=== PATIENT | female | born 1970 | race Caucasian/White ===

== ENCOUNTER 2023-07-30 22:19 | Emergency (ER) | payer OTHER, SELFPAY ==
[2023-07-30 22:29] VITALS: BP 125/75; PULSE 70; RESP 18; TEMP 36.7; O2SAT 95; BMI 36.3
--- NOTE | 2023-07-30 22:32 | XR_ITS ---
[facility] [id number] Patient Name: PRADEEP FITCH MRN: [id number] date: 1970 Sex: F Assigned Patient Location: ER Current Patient Location: ER Accession/Order Number: [id number] Exam Date: 07/30/2023 22:45 Report Date: 07/30/2023 23:21 At the request of: TEDDY MORA Procedure: XR foot RT min 3V EXAM: XR foot RT min 3V HISTORY: pain, dorsum COMPARISON: None. TECHNIQUE: 3 views of the right foot were obtained. FINDINGS: No acute fracture or dislocation is seen. There are scattered degenerative changes. There are moderate-sized plantar and small Achilles calcaneal enthesophytes. There is no significant right ankle joint effusion. XR/XR foot RT min 3V IMPRESSION: 1. Scattered degenerative changes with no acute osseous abnormality of the right foot seen. Electronically authenticated by: Tahir OROPEZA Date: 07/30/2023 23:21
--- NOTE | 2023-07-30 22:35 | ED.EXTPRO1 ---
HPI - Extremity Problem General Chief complaint: Extremity Injury, Lower Stated complaint: Lower Extremity Pain Time Seen by Provider: 07/30/23 22:30 History of Present Illness HPI Narrative: 52-year-old female presents for pain on the dorsum of her right foot. Three months ago she had fallen and had x-rays that were reportedly negative at another facility. The pain started up this time about a month ago and she's on her feet a lot at work. No subsequent trauma. She points to the mid dorsum of her right foot indicate area of pain. No pain in the ankle. Related Data Allergies Allergy/AdvReac Type Severity Reaction Status Date / Time NSAIDS (Non-Steroidal AdvReac Unknown Verified 07/30/23 22:38 Anti-Inflamma Review of Systems ROS Narrative A ten point review of systems is negative except as noted above. PFSH PFS Social History Smoking status: Former smoker Exam Narrative Exam Narrative: Nurses note and vital signs reviewed and patient is not hypoxic. General: The patient appears well and in no apparent distress. Patient is resting comfortably on cart. Skin: Warm, dry, no pallor noted. There is no rash noted. Head: Normocephalic, atraumatic Eye: Normal conjunctiva, no drainage Ears, Nose, Mouth, and Throat: oral mucosa is moist. Nares patent. Cardiovascular: Regular Rate and Rhythm Respiratory: Patient is in no distress, no accessory muscle use Back: non-tender GI: Normal bowel sounds, no tenderness to palpation, no masses appreciated. No rebound, guarding, or rigidity noted. Musculoskeletal: she has tenderness on the dorsum of the right foot. Skin intact. No bruise or rash present. Neurological: A&O, normal speech Psychiatric: Cooperative Constitutional Vital Signs, click to edit/add: Last Vital Signs Temp 98.1 F 07/30/23 22:29 Pulse 70 07/30/23 22:29 Resp 18 07/30/23 22:29 BP 125/75 07/30/23 22:29 Pulse Ox 95 07/30/23 22:29 O2 Del Method Room Air 07/30/23 22:29 Course Vital Signs Vital signs: Vital Signs Temperature 98.1 F 07/30/23 22:29 Pulse Rate 70 07/30/23 22:29 Respiratory Rate 18 07/30/23 22:29 Blood Pressure 125/75 07/30/23 22:29 Pulse Oximetry 95 07/30/23 22:29 Oxygen Delivery Method Room Air 07/30/23 22:29 Temperature 98.1 F 07/30/23 22:29 Pulse Rate 70 07/30/23 22:29 Respiratory Rate 18 07/30/23 22:29 Blood Pressure 125/75 07/30/23 22:29 Pulse Oximetry 95 07/30/23 22:29 Oxygen Delivery Method Room Air 07/30/23 22:29 MDM - Extremity (Nontraumatic) MDM Narrative Medical decision making narrative: x-rays per radiologist showed degenerative changes but no acute findings. She is referred to podiatry. Treatment diagnosis and follow-up were discussed with the patient. Differential Diagnosis Differential diagnosis: Likely other (foot sprain, fracture, arthritis) Imaging Data foot x-ray: Radiologist's impression: Procedure: XR foot RT min 3V EXAM: XR foot RT min 3V HISTORY: pain, dorsum COMPARISON: None. TECHNIQUE: 3 views of the right foot were obtained. FINDINGS: No acute fracture or dislocation is seen. There are scattered degenerative changes. There are moderate-sized plantar and small Achilles calcaneal enthesophytes. There is no significant right ankle joint effusion. IMPRESSION: 1. Scattered degenerative changes with no acute osseous abnormality of the right foot seen. Electronically authenticated by: Tahir OROPEZA Date: 07/30/2023 23:21 Discharge Plan Discharge Chief Complaint: Extremity Injury, Lower Clinical Impression: Foot pain Patient Disposition: Home, Self-Care Time of Disposition Decision: 23:29 Condition: Good Mode of Transportation: Private Vehicle Instructions: Arthralgia (ED) Additional Instructions: Follow-up with Dr. Mason Stand Alone Forms: Portal Instructions Referrals: ELAINE WEBB [Primary Care Provider] - 1 week
[2023-07-31] MEDS: TRAMADOL HCL 50 MG TABLET PO (00:07)
== END 2023-07-31 00:21 | disposition home or self-care (01) ==
PROVIDERS: Emergency Provider Emergency Medicine; PCP Family Medicine
DX: M79.671 Pain in right foot (principal); Z87.891 Personal history of nicotine dependence
CPT/HCPCS: 73630; 99283

== ENCOUNTER 2024-02-17 19:10 | Emergency (ER) | payer OTHER, SELFPAY ==
[2024-02-17] VITALS (7 sets, daily range): BP systolic 104–138; BP diastolic 64–81; PULSE 64–67; TEMP 37.1; O2SAT 95–99; BMI 36.3
--- OUTSIDE RECORDS SUMMARY | 2024-02-17 19:18 | XMS_ITS | CCD ---
Author Organization [facility] Care Team Providers Care Bone Worker Name Role Phone UDKE RIVAS Consulting Unavailable JON, DR HENRY Primary Care Unavailable ROB, AHVIN Admitting Unavailable ROB, AHDULCED Attending Unavailable MARKER, DR CRUZ Attending Unavailable MARKER, DR CRUZ Consulting Unavailable MARKER, DR CRUZ Admitting Unavailable JON, DR HENRY Primary Care Unavailable ELIECER CELESTIN Consulting Unavailable CHARLIERITIKA Admitting Unavailable CHARLIERITIKA TAMAYO Attending Unavailable JON, DR HENRY Primary Care Unavailable MOSES, DR BEAVERS Admitting Unavailable JON, DR HENRY Primary Care Unavailable MOSES, DR BEAVERS Attending Unavailable ROB, AHMAD Admitting Unavailable JON, DR HENRY Primary Care Unavailable ROB, AHDULCED Attending Unavailable ROB, AHMAD Consulting Unavailable ANISA CHOPRA Attending Unavailab ANISA Bae Referring Unavailab ANISA Bae Attending Unavailab BRYAN Courtney Attending Unavailable ANISA CHOPRA Referring Unavailab BRYAN Courtney Referring Unavailable ANISA CHOPRA Attending Unavailab ANISA Bae Attending Unavailab le ANISA CHOPRA Attending Unavailab BRYAN Courtney Attending Unavailable ANISA CHOPRA Referring Unavailab BRYAN Courtney Attending Unavailable BRYAN MARSH Attending Unavailable Allergies Allergy Classification Reported Allergen(s) Allergy Type Date of Onset Reaction(s) Facility (1 source) bee venom Drug allergy (disorder) [facility] (1 source) Desonide Drug Allergy [facility] (1 source) Latex Drug allergy (disorder) [facility] (1 source) Leucine Drug Allergy [facility] (1 source) Povidone-Iodine Drug Allergy [facility] (1 source) Misc-Other; Translations: [Misc-Other] Propensity to adverse reactions (disorder) [facility] (1 source) pine oil (Pinus sylvestris) Drug allergy (disorder) [facility] Problems Active Problems Problem Classification Problem Date Documented Da te Episodic/Chronic Other endocrine disorders (4 sources) Other specified disorders of adrenal gland; Translations: [OTHER SPEC DISORDERS ADRENAL GLAND] Onset: 12-27-2021 Chronic Other nutritional; endocrine; and metabolic disorders (1 source) Obesity, unspecified; Translations: [OBESITY UNSPECIFIED] Onset: 11-04-2021 Chronic Other nutritional; endocrine; and metabolic disorders (1 source) Body mass index (BMI) 38.0-38.9, adult; Translations: [BODY MASS INDEX BMI 38.0-38.9 ADULT] Onset: 11-04-2021 Chronic Residual codes; unclassified (4 sources) Obstructive sleep apnea (adult) (pediatric); Translations: [OBSTRUCTIVE SLEEP APNEA] Onset: 12-07-2021 Chronic Residual codes; unclassified (1 source) Idiopathic hypersomnia with long sleep time; Translations: [IDIO HYPERSOMNIA W/LONG SLEEP TIME] Onset: 12-10-2021 Chronic Past or Other Problems Problem Classification Problem Date Documented Da te Episodic/Chronic Abdominal pain (4 sources) Unspecified abdominal pain; Translations: [UNSPECIFIED ABDOMINAL PAIN] Onset: 11-03-2021 Episodic Intestinal obstruction without hernia (1 source) Ileus, unspecified; Translations: [ILEUS UNSPECIFIED] Onset: 11-04-2021 Episodic Nausea and vomiting (1 source) Nausea with vomiting, unspecified; Translations: [NAUSEA WITH VOMITING UNSPECIFIED] Onset: 11-04-2021 Episodic Other aftercare (1 source) Other ham passer (current) drug therapy; Translations: [OTH INTERMEDIATE CURRENT DRUG THERAPY] Onset: 11-04-2021 Episodic Other gastrointestinal disorders (1 source) Bariatric surgery status; Translations: [BARIATRIC SURGERY STATUS] Onset: 11-04-2021 Episodic Residual codes; unclassified (1 source) Acquired absence of other specified parts of digestive tract; Translations: [ACQ ABSENCE OTH PART DIGESTV TRACT] Onset: 11-04-2021 Episodic Results Test Name Value Interpretation Reference Range Facility BI MAMMOGRAM SCREENING TOMOS YNTHESIS BILATERALon 06-08-2023 BI MAMMOGRAM SCREENING TOMOSYNTHESIS BILATERAL This is a summary report. The complete report is available in the patient's medical record. If you cannot access the medical record, please contact the sending organization for a detailed fax or copy. EXAMINATION: BI MAMMOGRAM SCREENING TOMOSYNTHESIS BILATERAL CLINICAL HISTORY: screening mammogram COMPARISON: October 15, 2020. RESULT: Digital mammography and 3D tomosynthesis of bilateral breasts was performed. There are scattered areas of fibroglandular density. Left upper outer breast biopsy clips. Stable asymmetric fibroglandular breast tissue. There is no suspicious mass, asymmetry, architectural distortion, or calcification. No significant axillary lymphadenopathy. IMPRESSION: BIRADS 2 - Benign. Follow-up: Routine Screening Mamm . Board Certified Radiologists. Accredited by the ACR and FDA. MAMMOGRAPHY IS VERY IMPORTANT TO YOUR HEALTH. THE [employer] GUIDELINES RECOMMEND THAT WOMEN 40 YEARS OF AGE AND OLDER SHOULD HAVE A MAMMOGRAM EVERY YEAR. A REMINDER LETTER WILL BE SENT AT THE APPROPRIATE TIME. THIS FACILITY UTILIZES A REMINDER SYSTEM TO ENSURE ALL PATIENTS RECEIVE REMINDER NOTIFICATIONS AT THE APPROPRIATE TIME BASED ON THE RECOMMENDATIONS OF THIS EXAM. THIS INCLUDES REMINDERS FOR ROUTINE SCREENING MAMMOGRAMS, DIAGNOSTIC MAMMOGRAMS IN WHICH THE PATIENT IS ASKED TO RETURN FOR ADDITIONAL VIEWS, OR OTHER BREAST IMAGING INTERVENTIONS WHEN APPROPRIATE. THE PATIENT WILL BE PLACED IN THE APPROPRIATE REMINDER SYSTEM INCLUDING A REMINDER AT THE APPROPRIATE TIME FOR ANY PENDING ADDITIONAL VIEWS. TRANSCRIBED BY: ELECTRONICALLY SIGNED BY: Scottie Knight MD Normal Not Available XR Spine Lumbar Complete w/F kamlesh AND Elrod 05-25-2022 XR Spine Lumbar Complete w/Flex AND Ext FINDINGS: L4-5 pedicle screw fusion hardware, intervertebral disc spacer, 4 mm anterolisthesis. No osseous or hardware fracture. Moderate to severe disc space loss above the level of fusion, thoracolumbar region extending down to L2-L3. Flexion and extension: T11-T12 and T12-L1: Normal alignment, no change. L1-2: Several millimeters retrolisthesis, no change. L2-3: 4 mm retrolisthesis, no significant chagne. L3-4: Normal alignment, no change. L4-5: Fused segment, no change. L5-S1; Normal alignment, no change. 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 Minimal motion with flexion and extension. Report reported and signed by Scottie Knight on 05/25/2022 1100 Normal [facility] Specialist Coding Summaryon 03-24-2022 Coding Summary HTMLBase 64 SvvdvbwwVUn9yUh+PGhlY WQ+IE2JJYOiQ66xaOCrkS 4LR6oTVT2ENTTJYDHOKB3 JUU5qsPC8MGgyC3YalhRw SgdmbKEpJS83WWq0GRO6h NzvENnnxD2yrKIvX1z6Sx AgNI22kV20ECzrEAEeIoU 3LjZpbjsgbWFy A9uwXvBdaOQoDwy+PHRhY mxlIHdpZHRoPScxMDAlJy KjpMzrKW7nIc6wITKrUIS vbGxhcHNlOiBj a8exLVXdMNuuVA8srLadA 5NydHF4HWYbz8w6Jl63hV I+XRReAIM5fRfpTAebm80 1TtZkq6ghSFH2 zEYhTTnuAYB2R09yy4W7Y EVoTIJqHHC3aAA8cJ6ztO zkryepN5FgjLIdWpZ4BLH 0kRVeiZ7cqDxn wuestJ3yFcd+Q02NQS3WT VDBWT4YGnb9L5ReCxyyyY I+RB99NCPzNN34gSLhdWZ jj6djmVp1TcGk RORnLTN4cWgxZBkub4GqO RDcZ22dbFKyu4H3FPYmbL kfqJWkTnOzcZN7lS2lQOp fqbgpo5rakfqm Yvrjj4pxil65mT20H63xM ZnmXVEzWPQ4VSFdKJPewX evbz0bsB8kCt3+PYxnq8c wn4eulGa7GqJd YDDqccKhzZwiBCO2f7EuS s83H3SzcJags3PxWtd7bk 37pNOdt9D0hBP3IPrvFHB waR5mOCtfJjE3 WTZiLrTmkF24nXEsGDhtX t0ekCzvlCjzET6cOYLlyx maPRPleD6fSBXyxJRdjLl iMH8vCWDqszdy y397GeAbBUJ7TSZayKSuL 8AvuI1pJrCvHJOkJVTsA9 JwdWUaVRzhB082EJguUjX 7BMSxflSsP8Fb FDBjiHldPaB1l8E8Bg2Tm 1VgffqmXIX5XRluJRU4Pd ErOtZxBxH5O5SvQyk8ITJ vsJcqLS9nN5Ts UINpmeuzuunauUU9CNUrV TRzoN06hVQcDLorUq5sg2 R3z113BXVrAXGxjQ20Rr3 udDogMTBwdCBU fY4ngbhzs0vxunahMbNwZ UBkOBb0OUr8DWLrkCuaOz KnMLO4TtX0OVH2zBArvM4 oeWliwzyezP8i Oyc+K45mmM2sKLM5ZVF9x zygAJFtenYgBF60XC36E6 RyPjwvdGFibGU+PGRpdiB zhYpzJI1jBbWu o3bzb6AtPSmqJ8SsUFIiS WseWib5MSNiBUZ3vDM9pS 8yCXGiRXrxo2P3oGQ8Y5J kdkQuhy9fc7bx TYEpTOwrM37noIKwm7N8G HQofLZ6GAAifRcpGeGbxU 93Oyc+ZFExyYcwo0LyLvb hg5jcx4wtfBx5 VpHkUAZejfLcmNiqWRQ4d 1IdNu94S00iSKwvRXTeOW BuYBZkMLVmvKeuis0sfA3 wIi8+PGNvbCB3 gCS1kN5bMSBeUdA4ZLrbS 802RvVzyRVsXtuea5gwe3 aiyKh4TtFnMCHnfnLlhZv jXHX7j2OjDv19 K96cWCwxFNCaGYShJAQlG DVrtGmqae3smX3vTa1+PC 0gw7ltuz00hZ59jYW+PHR jVQW3aTgqMWgz OFAapI4xTUrpOcI2UDCsC pGatA90wQMaDLzuZl8ufR fjnDsqOC3pKYNwgwuiq82 4IoRcf4tsCVRi eKKkPKfzKDP0P37ju4F5J TAqMDXqKNT6sBN1iO7qxQ lnbjogbGVmdDsgdmVydGl uILxpKUayN150 IHRvcDsnPlBhdGllbnQgT pHhDGi2Q7IyLwb6UFAdsE xeVZ9zxAQsQIxeDc9yqFz qjXxcBK6gJOSy angrj922LuYhc8ooRLGmj TYuIPueQJV0A55lk3K1ND IvAAPzALD2nDU3bT3rkBh nbjogbGVmdDsg laLanGkvGFdqXSxyJ392M HRvcDsnPkJpcnRoIERhdG T7KM67UH06mYHff2I4iXV 1C3GpPHIiznzr bnudoCN6BGUqCKGkxH12U h4hfBsjAg5kFBJfHTB4LW InsXIvS5PdcA0dWfKxALR qUPPvE1TrzBAk KRjwC482YXtiHbW4TCFmh tXyG1KxQCAhhUcpXuY1g7 V3Lm5ZY5J0GJ76EO83xAH ki2S6xBH0J3Eh AGIemhisgnuvtNX4NJVlW BUurZ39Ba7xvYwlGr0mNE XyKBH7CGSkkRFdM2VyjM1 yOiAjMDAwMDAw D5HvjYKeNSuwR821AGdpS jB7OYBzvpDxT8NzGURqkA teDmE0x7C9If6UVTa9QO7 6JU32uLUhq5G4 bNW3P9UeCIRwxldejfzeu XY3CKGuFQTsdH55Td4vwN mgMa7vJLVqNFE5SONwzEV dU1MucQ3zTzUs XRWeNIWwX8TqxXVaBGfgO 887KUstXkK8BCXtufRmO5 SdKTLmoBtlMtQ9m3U6Bp5 BLQUvZX52QAQ2 tLE0VR20MF40B0AwHnllo GFibGU+PHRhYmxlIHdpZH RoPScxMDAlJyBzdHlsZT0 tDa4bMMSqAFKn rBkyiNBnXvMam5wjAMWzU AqzSR2fmKanA5LncUS2UM Rjk2y2Ez31I54jC1UdyHH +OLTpgRM9qYP9 nX3hIhBlXgT6UPgwB089N dFcrBCeZxeur2ybn1feeM i0YqY7JXXyhrIloSvsDUB 1g3XrRq82G37m IHdpZHRoPSIxNSUiIHZhb Wzvrn0ztU7qAv3+PGNvbC X8oBH5mK9kDnUeNvF1LQj yE932ZjEkpBPg Odhsu3jiz9ypwXl1ObTpT SAkuiGzoUpjFMC4u5HiJn 16J8FyeXwby2VyBpl7yd4 9mYUlz9P5wUW7 I5YmBQNluhqxuDRoqGxjI I8lAXVjmleaGMLrjK2gXE EoJ4q5PuNxGmG1UIhfF2M fcfQ9XQRtuJVz MKbsSAL7N04di3T2CXGfI FUcHHZ7mWY6nM2axBdnir ogbGVmdDsgdmVydGljYWw oIWzdT042JZUa mOyuWFIbpB4nJNQvdPWcr AopML8vXGJcbtpkCqVFLQ EON2QVIBAILQ7CXDUZQJ4 LPQ51JS72fYLm e5Y6fNP4F9KwMXAhfvlsz bexxIN6ZQLyQAGzdN70dS KnIJjcQr2yq0J3c999DIF pFWCnrG49Nm2q lDfmTVYzlPCHpJ0jpbnwm 3izypuoMaSwENDcKXj5PD p4XYGqoBovRnZoRCY5TuN 5OSU4tHEnhR4v wYsedjbhbG0hUoq+MDIvM OGyLYy5WntazSG+PHRkIH Z0nSftXMbfZPRftA9eTWO fD7y1PbYdMgG1 RLubO7WvVFHmaubbZn20q U3wDfEdWrB7MLyfQ8Ffar T6KRQvuJIsDDfaSZC7B84 ft1N7GIPcHIYt MTL7fNB8wM6qvCkkotyct GVmdDsgdmVydGljYWwtYW mkT427CKGonYmdWpJlRXu mINMtBV85US11 sRRky5W8yXM0E6DpHKDsp bqxcicokZK7VBJrPFYumM 47eFGcPXlxRe5eu0R4n69 3GSKrCFJhxB61 Ub4mxBdgVUKkqFLNjL9bg ogpf8qtkdxrXjMkERRcVF b1XWy0CYJpzDhcWzRbDMM 1VyZ3TTT5pTAh aN0urFmfdjvfsS0wJdb+R xASCXwWRI98LJ25kEGfi2 V8dEG8V8TkXQWlzkurktl vyNY8KDTaPARn eV10pIUlTVreHs0db9O9u 239VMWrRMAxaX11Gi4znT ujAHKutDIIpY6vskfma4r vcjogIzAwMDAw TEl1QUo2HWZihDhnRdFmF TO9LmW7XQC4xVSrrS7jnS bkqphenK3nHrw+G8D0M7U kPjwvdHI+PC90 BSKhWS25yTOjrLIxt9tey Jl5YbMvVVCpVBV7qUqfTO rpa1ClQFFvT63cdFHvp8C 6IGNvbGxhcHNl WpOqhMV9rD1dXQudgfbku 6folmerNytvb5vkmu38wL 56A44kSGykNTFbUTBqHWR vOUWofZuzqv1k vH1lWz7+DBImeZI5sMV8h C3kGkTdCoK9TXxbL649Eg IymBJdPprvf9kkh8zdlXo 9IjIwJSIgdmFs uUnlGQI0s7FlRa94P53aA HdpZHRoPSIyMCUiIHZhbG tjwg4khO9bRy5+SH4yz2t stj86rI56rFU+ TTCfCWJ7vLrhKOigIUBow P6fLXptJzF0BWCkOpDcwU 45eTKcWNzpXt4jpQjdzIs gEK5dZYXfbomn l338IdBzn7emMIUysRAlF NmrKCR6L84pu6L7GUHrFY EyBUO0lOK9iW5gkCqlbaq gbGVmdDsgdmVy dIwmYNfhJGbcW075NQGyi LhlLxMscLEwT3qlaqKNOZ 1lOjwvdGQ+QZZaOSH6cTo eLVqkWELogE8a GURwZ6i9YdEwTnI4JWgmI 1UjusK1WYSugLUkJNWcnY NIaQ2nswanz6ndpvclTqK yTPXcFSt1SAr2 MPEmvEsiFyMoWWD9WdL6O DJ6xZQokE8bfTkzsgfpyS 9wOyc+RklOOjwvdGQ+PHR oXBH8vBakIAcs INWueO5fAKLuS7q6XiOyJ lL3WPheN1FdcqY3ZSKgcR HoLYFwfMXJhP7usjhcq2e vcjogIzAwMDAw AOc2WBw8NUEhhXevZvUrB YW8VfZ0YWL5qRYxhK7rrP guksaccT5iKbr+TVJOOjw vdGQ+PHRkIHN0 yEzfPPbkREQnoE1nCEJfX 0k2VwJvDoJ1QNxmD9Cxhz E9DNFwvRBtPMWwyGSEeE6 ancnpn5daqoub PbDiEVFeCIa4HUt2NEUxg CsjEuUpPAA7HgX3LBO1pP EdjE3qoXdqhkkycL5dCbl +YRM8VRW4ZA52 CD81S2CmIhpjsHPxhOT+P HRhYmxlIHdpZHRoPScxMD FiUpLvyGloJH0nUl8iVDS yLWNvbGxhcHNl OiB (more content not included)... [facility] Coding Summary HTMLBase 64 LlyrjrbcOVd0kXi+PGhlY WQ+FT0QIEPzR98zvUWdrH 9OR4kXOD0GQCTDNVNJEA6 HWJ4fnHS0VNnyN2OemoNz WaznoVBlOF81XVt4APW0j FsfYTgjcH2ysUZhJ0g4Ge SqUX80aA04NCalOXVwFkY 3LjZpbjsgbWFy Y9jbNdBekDPuKam+PHRhY mxlIHdpZHRoPScxMDAlJy MczDsiIV1yZt3oHLPzKRW vbGxhcHNlOiBj p5cyCKSoRQuaUN9ccNerN 0IeqNC5XGXpq7g8Er08nQ I+WIArKGT3lQswVBbgb97 6YcOfw7pjLUY0 jXTlBNagHHK7V04po5P4F NSzOFVnYWX9uMD7xN1keR wufrbfP9SajEKoRzG2SKC 9rRViaE5bnHgy nauteD5xCzx+J25KLM8LH KUELU8PAyk2E6TlPjdwvX I+LY54RNCdFG67mXYbeWK zx0tubDu7WiAz JKAkGEL7jPeaBJvum9MzD IKyR90hmFLll4Z7VUHsjW dqfNBvErBcmSQ4vM5dEMr agjoig2ysmcgt Shutd2mtes71vV71L03eL HofAAIePKU6JWJzNPHfgL lahj8prP5mVb9+CAkqv7e of6kocOn0LuWv ZCNinaXorQniHTC6d0GfG c07B6MyxXkeq7NbCew9pw 14lCFeg7P7hWB8SCzsDES hlV7mYTgyVkN0 TDIeItXmsX19mKMvOOarF f2ejPwshUjhLN5xJVCqkh seRQJgqW7cLDGnvAIryLa jHW9iMCFkjahx u811VqDtESF5IRRgdXHuW 6WvsJ8hBgRuFXYoFACgH3 WxoJNeQYvgR765CRfaLxQ 1YTKafaFyK9Nv VPAlzIieGlE4g1A4Cz4Ez 6YhscflIFI1NOseEGA4Yz VzTwTcGuZ2C6DjPlb0QON udSpcHH8lH0Pz VUNkwgsnoystzDC0LSOgH PApgR73gXFiQAecHz0vz0 O5b016RYGqRRPrcV72Xi4 udDogMTBwdCBU jW9ldgjyi3rqnrgeJrWzP WDtWLy3YQf7FJSqyWqrJu MpRXP4CiN5DTT6cQPjdI7 ykEtlxyeenK0v Oyc+H36syY1bZUH3ULN6h ckwWRGlgfOcQU31XB38K9 RyPjwvdGFibGU+PGRpdiB hbYrkQH1kTcUo v3cne9LiDJmfF4ScQEAzA BfhSlk7ELItAUG7yRH0fN 3zJATlFMzbg4Z3aKJ3C3S siwKavt7tt9up LPTvJLbvZ45vvEZpy7Y8U UNzlTE9PJYriLtrOdLocV 93Oyc+JDLrmBcgu0XvMyn bt0zjt6ereQx7 SpEoBFScbdAhmCmrXII9f 8MaTg44K49eGNlmVQKbLC FmVKGqHGSzwShqnc7pcD8 wIi8+PGNvbCB3 aQP8qA6hIGJcKpE0NApoO 619RbWxbDPjYrzwd6fjd9 tnuRy1CmQrKBJtkyMnzIe xMFM2w1EtTz22 D12hVAboBMQlSBCwIASdA GOszQgfkp8xtX6sIz3+PC 2cy9yjme31iP99tVX+PHR kYAQ2jLcxBNft XLNgoY1tCUctExL7CZMtC wHveZ86yLDwQTzhPu4iyF dmuUuyIP8aCLLducnqg95 3KoVtu5daGKVf oMJlLImzZZG8D88jk4S9R NZmGBFzQVW1oWW1eQ7vrS lnbjogbGVmdDsgdmVydGl dWTlvOOjdF883 IHRvcDsnPlBhdGllbnQgT nHlLMy8M2DjOkj9VZKhiH nkRF9qjJCnOSufFq2jyYy ewYknTS6lKREt uasle756QnSzk3otTZYoj LVpHBwvQMZ8D06ww8E8IG FjLOKsCPA6qES2nF8wxVk nbjogbGVmdDsg ttKurRbaCVmeJOfuF454D HRvcDsnPkJpcnRoIERhdG M2IW73XU91eUTwl2A8qTM 8H5IyOSYngchy ehjlnAY6KAEqGCRlnX60A j2zkVjqGv8oHGGxUYJ3LK MxdLEzG1LevY5eLtZmQSP dAVEiP0WoxNWk HNyjZ744GLikFvJ3GZVqo oJsI6ZoIUWjnIatDyX7g9 L2Mk1NC1P7ZJ24UK72pJL cb6Z3yNO7E2Wp OQJlanklmclkjMA5QLNaY LIzoV31Xk4rwTcrHj6nKF EtDVJ4UCDrsSSyH1JfxX8 yOiAjMDAwMDAw Z0NprDDkUUjgF301OVbtX bM6XTRutkZuY9CmTTKzxQ inVlE9b0Q9Fa4YWAb0YR3 1IQ44vNJzc6A9 cGU7B3XwLUDkiaqqyltqd BW1GVWbLQInjP51Rw6jgV cpUg8zQUXzRSS7LNJpgMO rA1MbjN5hAxQm AXWxVMGcU4ZzcNOsNNqkW 468MWrdQrS1NFMywvFhF1 WxCHVviTfeWnI8b9J7Kj2 VDSHlPG41VAP4 gDH0DT51YC94K4YnSydnk GFibGU+PHRhYmxlIHdpZH RoPScxMDAlJyBzdHlsZT0 iWw1cAQPdTCJo vKhgeGSkViMvf1ewOFHwW SvaUH1vuHfnV0BlkLU4MH Iok6d9Rl64Z74mL4QaeSA +OMMkgUZ7lUU0 gK2cFtThBqT9VFhrX867Z kGscADdDsskx4wyf8kvuB b2CmQ4FWEymgMtnMdpCHR 0o2UaZv24K73q IHdpZHRoPSIxNSUiIHZhb Urtzp9clZ7iXz3+PGNvbC C9aWS3sV0bMmCiBqM7TId aH620WdHjvXJa Nyvwo0anw9hutOx6RxOeD DPktkRudIqrHMS5u5JeHt 50I6RxwWgwx7BeCft3vg8 9bPDbh3G2nUZ3 F1DqBCWojafijRDguSepM D3kYIYknskpZEYeaP0qKD DiX2y2OlJxLmG2AMehW0B seiN6CDPwjZOi FEbbKBJ5X35ec9M8NXMmO TJkZET6lFJ9nC2urUmrii ogbGVmdDsgdmVydGljYWw jMEodQ942UKVg jOmtSUIaqD9uQSWhlZRen NebMT2bJMWpjdsjZyETDX PKR1PHTPONLN8ESLOCNA1 CJX01AP89dHWk r4T8iOZ0K5ImQZDlpudhd yalaMS0YVDkZZHfxW80nW DaHVgqJh6jy7C1f122EYE xCPGpvX22Wy4y bUyrVFLraUODmP9juzast 7kxqcptIfDuQVItWZd3VL r1XOCgsRjsYyByZDW9FjU 2DWY8tMNjoL8r gPmhjepxyV2mQha+MDIvM KHnGNb4JsaxtDD+PHRkIH H3eUfpDAeeEHKuuP1hGHR mD5k5GhPdNgW3 LRtaC4WiDJOwrhdzTq01t P0wMzBdWhV1NOioO9Qlzy J6ZYBsoZDnZHyvKJX6C08 qz4D6KSAgEFDm AJQ1aWL6aL0edGppnpfax GVmdDsgdmVydGljYWwtYW mnV970LZDztLuvJzYkHIi pBATuQW18AF71 lSVbh9M2bHU5T8CpANIqi lmuakcrgXG6AJDbHYLtiK 43qLHaGGtvVy8do6T5u95 9WJXnLRErlT10 Lc2mlWmgMVTxvXXHhX3fl dwzh5qbahsrWlZqKOWuPB t3KZw7HSIrxVqiVnLaFET 4SdF0KIO0lPWh oA1jnDebobxznT4bMub+R zPGBStWUM58XT55iNAam7 F6yJM8Q7AoVBWxbbktsvk dyTU0ADMrZTAg tN20fABuOQlyYb9dd1R0d 024ACAgFXDxeK94Nx9liW wiHAMpbUKPxV4uzrunj4c vcjogIzAwMDAw XAt9QFk2QUFhuDjlHtVsU XP6YhO1WMB5yFCewZ9wbU mkotdioO4kEee+MN8hqpk gtaD1SE02IY38 P5SrRtmynBRgpXD+PHRhY mxlIHdpZHRoPScxMDAlJy RsqWbjDY8kRd9oXPRpFIV vbGxhcHNlOiBj b6cdXEBgTBnbMA3mpTgpB 6TlhRL3ALErn8x5Sp70R0 6oQ8CnxPF+PKNunNG4uQL 5hK3mVxZbWcU1 NOboU231UxGdlFNtGregk 7ati9kytAm5IjZaROThyj UscQumQWE6b9HbDx69A02 sIHdpZHRoPSIy PXSkLWIybEfdbx3cfG0fI i8+DLZvsXE3dNL6uB8pUr OmRdD5TEtiO218RbQmvLK eYdyzV54eI4Yi dXA+XLNbNsh4YMFkwGbhF M1qhXQqCQgfEq5bTPQ3Nl OrZrPkSZfgS9PnZEXzgpj dkvwjfBP1UQYd NFTddI63Up5acDiiRa3vF CItOQT1MTDqsAQiA3IfbA 1xYrZnQDQhCTUmI3QnqXO iIQjeJ968BVqq JwY7HFQfwzJtS7AcUNNlq EouRgW8u8B3Cw2DeUwocG WyFD4qKpEyKUs5M8CvUqp 8GKXegWvwEE0z hKQyZHxzYk9xzUvosBdgK W4sUWTizmvxv756DbNis8 mnPXXyhOXnRPzmIIX9M16 sa9G6ASNrPZXk OCL2oNP3tI6fnMupsgyxk GVmdDsgdmVydGljYWwtYW noY916XKUpfWlqFnRBQdi 3I3JdOlw9PJHt oZgjUM3sgPDhSEbrSm3st ZiurXjvHR1uCVBmkasnz5 17NcLez1izLDCsmAIbJJo jGYC4L30am1C0 VXKrIMUkBDL4nNU3aR5pb GlnbjogbGVmdDsgdmVydG hePJqsWQsvI390UUTjjJi qOp9BOym5W4Gm Tfv5LNKzqDdqRN1npDRmQ DjpEg9ypYshnZlqLO1gNG Wmszelf484VwEsw6wlPRV wcHQgVGltZXM7 C61vz7I6JMTmJVNoQPZ8b DL0tD6maEqhzzndqWTmfC kqziPzzOjuWDkoQMadR19 6IHRvcDsnPlBh eWVyOjwvdGQ+EZ67li55G 7ZxWlbsHfp5BMKhPIU4sG S8nG8yBHNoVVfms2M3qRT 6C9FbfaNtxd4k b2x (more content not included)... Normal [facility] Ambulance Noteon 03-10-2022 Ambulance Note [id number]#[address] [place] [address] Consent Formson 03-10-2022 Consent Forms [id number]#[address] [place] [address] Consent Forms [id number]#[address] [place] [address] .Auto Diff 1on 03-09-2022 Auto Vernon % 9 % Normal 08-04 [facility] Comment on above: Performed By: #### 1 [id number], 6220732, [id number], [id number], 0778694089, 9870925 ####[facility] (DEFAULT)[address] [place] [address] Baso Abs# 0.0 x10 Normal 0.0-0.2 [facility] Comment on above: Performed By: #### 1 9783116, 3613507, 2572374120, 2645623358, 8238121394, 3130567 ####[facility] (DEFAULT)[address] [place] [address] 53659 Basophils/100 WBC (Bld) 0.6 % Normal 0.2-2.0 [facility] Comment on above: Performed By: #### 1 9954079, 1288216, 6169357902, 0581795488, 9863733484, 6192634 ####[facility] (DEFAULT)[address] [place] [address] 50362 Eos Abs# 0.0 x10 Normal 0.0-0.4 [facility] Comment on above: Performed By: #### 1 1578165, 8334188, 9440128277, 1955982636, 0219019975, 3231911 ####[facility] (DEFAULT)[address] [place] [address] 07868 Eosinophils/100 WBC (Bld) 0.8 % Low 0.9-4.0 [facility] Comment on above: Performed By: #### 1 0437981, 6207610, 9619494634, 2501985493, 7928964243, 8011459 ####[facility] (DEFAULT)[address] [place] [address] 73086 Lymph Abs# 1.6 x10 Normal 1.3-2.9 [facility] Comment on above: Performed By: #### 1 1635162, 2409116, 4636096386, 0227318019, 5891828597, 5793522 ####[facility] (DEFAULT)[address] [place] [address] 36888 Lymphocytes/100 WBC (Bld) 24 % Normal 14-48 [facility] Comment on above: Performed By: #### 1 5241076, 9744614, 5641114557, 2017398919, 7952608244, 8233228 ####[facility] (DEFAULT)[address] [place] [address]374 Vernon Abs# 0.6 x10 Normal 0.0-0.8 [facility] Comment on above: Performed By: #### 1 9765517, 2892013, 4905909589, 9628121305, 1341070208, 2011115 ####[facility] (DEFAULT)[address] [place] [address] Neut Abs# 4.2 x10 Normal 1.5-9.2 [facility] Comment on above: Performed By: #### 1 8727330, 3171894, 9541277479, 9160679487, 9519165519, 7513382 ####[facility] (DEFAULT)[address] [place] [address] Neutrophils/100 WBC (Bld) 65 % Normal 44-88 [facility] Comment on above: Performed By: #### 1 0193176, 9055337, 6243248634, 2637459454, 8919282708, 5823160 ####[facility] (DEFAULT)[address] [place] [address] CBC w/ Auto Diffon 2 Erythrocyte distribution width (RBC) [Ratio] 14.1 % Normal 11.5-15.0 [facility] Comment on above: Performed By: #### 1 2204814, 5583878, 8714728288, 1542936402, 8116612110, 9119561 ####[facility] (DEFAULT)[address] [place] [address] Hematocrit (Bld) [Volume fraction] 40.0 % Normal 33.7-40.4 [facility] Comment on above: Performed By: #### 1 1326404, 7318605, 7094808902, 6725532138, 7605365549, 2605453 ####[facility] (DEFAULT)[address] [place] [address] Hemoglobin (Bld) [Mass/Vol] 13.1 g/dL Normal 11.3-15.9 [facility] Comment on above: Performed By: #### 1 9459743, 8966917, 2619271071, 9317033176, 8563146515, 3360175 ####[facility] (DEFAULT)[address] [place] [address] Instr WBC 6.4 x10 Invalid Interpretation Code [facility] Comment on above: Performed By: #### 1 6435281, 8204691, 3039202708, 9419982763, 3923637851, 3193877 ####[facility] (DEFAULT)[address] [place] [address] Man Diff? Auto Normal [facility] Comment on above: Performed By: #### 1 4420892, 1385416, 4495207132, 7921528548, 7683188421, 8660275 ####[facility] (DEFAULT)[address] [place] [address] 11491 MCH (RBC) [Entitic mass] 30 pg Normal 24-34 [facility] Comment on above: Performed By: #### 1 9405312, 2109995, 7537081362, 4938581024, 1437014653, 1158464 ####[facility] (DEFAULT)[address] [place] [address] 61529 MCHC (RBC) [Mass/Vol] 33 g/dL Normal 26-37 [facility] Comment on above: Performed By: #### 1 1594217, 9558856, 7714794404, 1170571972, 5320604447, 2528237 ####[facility] (DEFAULT)[address] [place] [address] 81491 MCV (RBC) [Entitic vol] 90 fL Normal 81-100 [facility] Comment on above: Performed By: #### 1 8321567, 2829719, 1165409327, 9705519964, 4452377214, 3577588 ####[facility] (DEFAULT)[address] [place] [address] 99612 Platelet 244 x10 Normal 138-427 [facility] Comment on above: Performed By: #### 1 2133297, 4889478, 7274528688, 3969567529, 0751730078, 8659149 ####[facility] (DEFAULT)[address] [place] [address] 76839 Platelet mean volume (Bld) [Entitic vol] 10.9 fL High 6.3-10.2 [facility] Comment on above: Performed By: #### 1 0987357, 4648901, 5364958423, 1269690874, 7942023203, 2522611 ####[facility] (DEFAULT)[address] [place] [address] 10549 RBC 4.42 x10 Normal 3.70-5.30 [facility] Comment on above: Performed By: #### 1 1009027, 2428133, 0651270505, 5736033872, 7795075845, 4331877 ####[facility] (DEFAULT)[address] [place] [address] 69050 WBC 6.4 x10 Normal 3.5-10.5 [facility] Comment on above: Performed By: #### 1 6313457, 2457997, 8906117539, 1241610807, 8750042683, 7304376 ####[facility] (DEFAULT)[address] [place] [address] 76218 CMP Standardon 03-09-2022 eGFR Non AA >60 Invalid Interpretation Code [facility] Comment on above: Performed By: #### 1 5853531, 5023401, 5614891355, 5496058523, 4093269579, 0533882 ####[facility] (DEFAULT)[address] [place] [address] 86286 eGFR AA >60 Invalid Interpretation Code [facility] Comment on above: Result Comment: Groutman randa Kidney disease could be indicated at eGFRs of less than 60 ml/min/1.73m2. Kidney Failure is indicated at less than 15 ml/min/1.73m2 Performed By: #### 1 5279117, 6673107, 3194845554, 4722473998, 3489755614, 0457009 ####[facility] (DEFAULT)[address] [place] [address] 54678 Albumin [Mass/Vol] 3.7 g/dL Normal 3.5-5.0 [facility] Comment on above: Performed By: #### 1 2555369, 7513606, 4061774323, 8976566587, 0879124042, 5718619 ####[facility] (DEFAULT)[address] [place] [address] 64244 Albumin/Globulin [Mass ratio] 1.2 {ratio} Low 1.4-2.6 [facility] Comment on above: Performed By: #### 1 7466401, 5223332, 4865608320, 3975767317, 8162355918, 5548070 ####[facility] (DEFAULT)[address] [place] [address] 20151 Alk Phos 66 IU/L Normal 32-91 [facility] Comment on above: Performed By: #### 1 8434394, 2852178, 8071390452, 8138912164, 7792481866, 3342694 ####[facility] (DEFAULT)[address] [place] [address] 62190 ALT [Catalytic activity/Vol] 32.0 U/L Normal 14.0-54.0 [facility] Comment on above: Performed By: #### 1 1806616, 3689889, [id number], [id number], [id number], [id number] ####[facility] (DEFAULT)[address] [place] [address] 03652 Anion gap [Moles/Vol] 13.0 mmol/L Normal 5.0-19.0 [facility] Comment on above: Performed By: #### 1 [id number], [id number], [id number], [id number], [id number], [id number] ####[facility] (DEFAULT)[address] [place] [address] 36889 AST [Catalytic activity/Vol] 28 U/L Normal 15-41 [facility] Comment on above: Performed By: #### 1 [id number], [id number], [id number], [id number], [id number], [id number] ####[facility] (DEFAULT)[address] [place] [address] 33464 Bili Total 0.6 mg/dL Normal 0.3-1.2 [facility] Comment on above: Performed By: #### 1 [id number], 9022109, [id number], [id number], [id number], [id number] ####[facility] (DEFAULT)[address] [place] [address] 08668 Calcium [Mass/Vol] 9.0 mg/dL Normal 8.9-10.3 [facility] Comment on above: Performed By: #### 1 [id number], 0067122, [id number], [id number], [id number], [id number] ####[facility] (DEFAULT)[address] [place] [address] 59698 Chloride [Moles/Vol] 103 mmol/L Normal 101-111 [facility] Comment on above: Performed By: #### 1 [id number], 8611832, [id number], [id number],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 [address] [place] [address] Dr. Nica Stover EGFR-NON AF SLOVAK >60 Normal >=60 [facility] Comment on above: Performed By: #### B MP #### [facility] [address] [address] [address] Nica Stover Glucose [Mass/Vol] 143 mg/dL Critically high 74-106 [facility] Comment on above: Performed By: #### B MP #### [facility] [id number] Nica Stover Potassium [Moles/Vol] 3.9 mmol/L Normal 3.5-5.1 [facility] Comment on above: Performed By: #### B MP #### [facility] [address] [address] [address] Nica Stover Sodium [Moles/Vol] 136 mmol/L Normal 136-145 [facility] Comment on above: Performed By: #### B MP #### [facility] [address] [address] [address] Nica Stover Urea nitrogen [Mass/Vol] 9.0 mg/dL Normal 7.0-18.0 [facility] Comment on above: Performed By: #### B MP #### [facility] [address] [address] [address] Nica Stover Urea nitrogen/Creatinin e [Mass ratio] 12.3 mg/mg Normal [facility] Comment on above: Performed By: #### B MP #### [facility] [address] [address] [address] Nica Stover CORTISOLon 12-23-2021 Cortisol 1.4 ug/dL Normal [facility] Comment on above: Result Comment: João isol AM 6.2 - 19.4 Cortisol PM 2.3 - 11.9 Performed By: #### C ORTISO #### [facility] [address] [address] [address] Nica Stover US Abdomen Completeon 2021 US Abdomen Complete FINDINGS: The liver is dense suggesting fatty infiltration though is without worrisome mass lesions or biliary dilatation. The common bile duct is unremarkable, 11 mm status post cholecystectomy procedure. Normal splenic volume (maximum length 10.6 cm). Pancreas is not seen due to overlying bowel gas. Both kidneys are without collecting system dilatation or worrisome mass lesions. No echogenic foci of significance are present. The right kidney measures 10.1 x 6.4 x 5.0 cm and the left kidney 11.3 x 5.7 x 6.4 cm. Neither adrenal gland was visualized. No suprarenal mass. Normal aortic size, maximum diameter 2.4 x 2.6 cm with peripheral tapering. IMPRESSION: 1. Diffuse hepatic fatty infiltration. 2. 11 mm common bile duct with no significant intrahepatic biliary ductal dilatation. This can be normal findings status post cholecystectomy procedure. Report reported and signed by Scottie Knight on 11/19/2021 0914 Normal [facility] Complete Blood Count with Au to Diffon 11-10-2021 Basophils (Bld) [#/Vol] 0.05 10*3/uL Normal 0.00-0.20 [facility] Comment on above: Performed By: #### C ENRRIQUE, CBCAD #### [facility] [address] [place], [place] [id number] Basophils/100 WBC (Bld) 0.8 % Normal [facility] Comment on above: Performed By: #### C ENRRIQUE, CBCAD #### [facility] [address] [place], [place] [id number] Eosinophils (Bld) [#/Vol] 0.06 10*3/uL Normal 0.02-0.50 [facility] Comment on above: Performed By: #### C ENRRIQUE, CBCAD #### [facility] [address] [place], [place] [id number] Eosinophils/100 WBC (Bld) 1.0 % Normal [facility] Comment on above: Performed By: #### C ENRRIQUE, CBCAD #### [facility] [address] [place], [place] [id number] Erythrocyte distribution width (RBC) [Ratio] 13.2 % Normal 11.0-15.0 [facility] Comment on above: Performed By: #### C ENRRIQUE, CBCAD #### [facility] [address] [place], [place] [id number] Hematocrit (Bld) [Volume fraction] 39.4 % Normal 35.0-47.0 [facility] Comment on above: Performed By: #### C ENRRIQUE, CBCAD #### [facility] [address] [place], [place] [id number] Hemoglobin (Bld) [Mass/Vol] 12.7 g/dL Normal 11.6-15.5 [facility] Comment on above: Performed By: #### C MP, CBCAD #### [facility] [address] [place], [place] [id number] Lymphocytes (Bld) [#/Vol] 1.8 10*3/uL Normal 0.9-3.9 [facility] Comment on above: Performed By: #### C MP, CBCAD #### [facility] [address] [place], [place] [id number] Lymphocytes/100 WBC (Bld) 29.5 % Normal [facility] Comment on above: Performed By: #### C MP, CBCAD #### [facility] [address] [place], [place] [id number] MCH (RBC) [Entitic mass] 29.1 pg Normal 27.0-33.0 [facility] Comment on above: Performed By: #### C MP, CBCAD #### [facility] [address] [place], [place] [id number] MCHC (RBC) [Mass/Vol] 32.2 g/dL Normal 32.0-36.0 [facility] Comment on above: Performed By: #### C MP, CBCAD #### [facility] [address] [place], [place] [id number] MCV (RBC) [Entitic vol] 90 fL Normal 80-100 [facility] Comment on above: Performed By: #### C MP, CBCAD #### [facility] [address] [place], [place] [id number] Monocytes (Bld) [#/Vol] 0.4 10*3/uL Normal 0.2-0.9 [facility] Comment on above: Performed By: #### C MP, CBCAD #### [facility] [address] [place], [place] [id number] Monocytes/100 WBC (Bld) 6.4 % Normal [facility] Comment on above: Performed By: #### C MP, CBCAD #### [facility] [address] [place], [place] [id number] Neutrophils (Bld) [#/Vol] 3.8 10*3/uL Normal 1.5-7.8 [facility] Comment on above: Performed By: #### C MP, CBCAD #### [facility] [address] [place], [place] [id number] Neutrophils/100 WBC (Bld) 61.8 % Normal [facility] Comment on above: Performed By: #### C MP, CBCAD #### [facility] [address] [place], [place] [id number] Platelet mean volume (Bld) [Entitic vol] 11.00 fL Normal 7.50-12.50 [facility] Comment on above: Performed By: #### C MP, CBCAD #### [facility] [address] [place], [place] [id number] Platelets (Bld) [#/Vol] 274 10*3/uL Normal 140-400 [facility] [employer] [employer] Comment on above: Performed By: #### C MP, CBCAD #### [facility] [address] [place], [place] [id number] RBC (Bld) [#/Vol] 4.37 10*6/uL Normal 3.90-5.20 [facility] [employer] Comment on above: Performed By: #### C MP, CBCAD #### [facility] [address] [place], [place] [id number] RDW-SD 43.3 fL Normal 37.0-50.0 [facility] [employer] Comment on above: Performed By: #### C MP, CBCAD #### [facility] [address] [place], [place] [id number] WBC (Bld) [#/Vol] 6.2 10*3/uL Normal 3.8-11.0 [facility] [employer] Comment on above: Performed By: #### C MP, CBCAD #### [facility] [address] [place], [place] [id number] Comprehensive Metabolic [facility] 11-10-2021 Albumin [Mass/Vol] 4.5 g/dL Normal 3.6-5.1 [facility] [employer] Comment on above: Performed By: #### C MP, CBCAD #### [facility] [address] [place], [place] [id number] Albumin/Globulin [Mass ratio] 2.1 {ratio} Normal 1.0-2.5 [facility] Comment on above: Performed By: #### C ENRRIQUE, CBCAD #### [facility] [address] [place], [place] [id number] ALP [Catalytic activity/Vol] 81 U/L Normal 35-119 [facility] Comment on above: Performed By: #### C ENRRIQUE, CBCAD #### [facility] [address] [place], [place] [id number] ALT [Catalytic activity/Vol] 27 U/L Normal 6-33 [facility] Comment on above: Result Comment: 06/23 Female reference range changed. Performed By: #### C ENRRIQUE, CBCAD #### [facility] [address] [place], [place] [id number] Anion gap [Moles/Vol] 18 mmol/L Normal 12-20 [facility] Comment on above: Result Comment: Effe ctive 07/29/2019 reference range changed. Performed By: #### C ENRRIQUE, CBCAD #### [facility] [address] [place], [place] [id number] AST [Catalytic activity/Vol] 30 U/L Normal 9-34 [facility] Comment on above: Performed By: #### C ENRRIQUE, CBCAD #### [facility] [address] [place], [place] [id number] BUN/CREA 10 Ratio Normal 6-22 [facility] Comment on above: Performed By: #### C ENRRIQUE, CBCAD #### [facility] [address] [place], [place] [id number] Calcium [Mass/Vol] 9.1 mg/dL Normal 8.6-10.2 [facility] Comment on above: Performed By: #### C ENRRIQUE, CBCAD #### [facility] [address] [place], [place] [id number] Chloride [Moles/Vol] 103 mmol/L Normal 98-107 [facility] Comment on above: Performed By: #### C ENRRIQUE, CBCAD #### [facility] [address] [place], [place] [id number] CO2 [Moles/Vol] 22 mmol/L Normal 20-31 [facility] Comment on above: Performed By: #### C MP, CBCAD #### [facility] [address] [place], [place] [id number] Creatinine [Mass/Vol] 0.6 mg/dL Normal 0.6-1.4 [facility] Comment on above: Performed By: #### C MP, CBCAD #### [facility] [address] [place], [place] [id number] eGFRAA 139 mL/min/1.73m2 Normal >60 [facility] Comment on above: Performed By: #### C MP, CBCAD #### [facility] [address] [place] [address], [place] [id number] eGFRNAA 115 mL/min/1.73m2 Normal >60 [facility] Comment on above: Performed By: #### C MP, CBCAD #### [facility] [address] [place], [place] [id number] Globulin (S) [Mass/Vol] 2.1 g/dL Normal 1.9-3.7 [facility] Comment on above: Performed By: #### C MP, CBCAD #### [facility] [address] [place], [place] [id number] Glucose [Mass/Vol] 139 mg/dL High 65-99 [facility] [employer] Comment on above: Result Comment: For FASTING Glucose --- ADA reference ranges: Normal 65-99 mg/dl Prediabetes 100-125 Diabetes >/= 126 Performed By: #### C MP, CBCAD #### [facility] [address] [place], [place] [id number] Potassium [Moles/Vol] 3.9 mmol/L Normal 3.5-5.5 [facility] [employer] Social [employer] Comment on above: Performed By: #### C MP, CBCAD #### [facility] [address], [place] [id number] Protein [Mass/Vol] 6.6 g/dL Normal 6.1-8.1 [facility] [employer] Comment on above: Performed By: #### C MP, CBCAD #### [facility] [address] [place], [place] [id number] Sodium [Moles/Vol] 139 mmol/L Normal 135-146 [facility] Comment on above: Performed By: #### C MP, CBCAD #### [facility] [address] [place] [address], [place] [id number] TBIL <0.3 Normal [facility] Comment on above: Performed By: #### C MP, CBCAD #### [facility] [address] [place], [place] [id number] Urea nitrogen [Mass/Vol] 6 mg/dL Low 7-25 [facility] Comment on above: Performed By: #### C ENRRIQUE, CBCAD #### [facility] [address] [place], [place] [id number] CBC AUTO DIFFon 11-03-2021 BASO # 0.1 103/ul Normal 0.0-0.1 [facility] Comment on above: Performed By: #### C BC #### [facility] [address] [place] [address] Dr. Nica Stover Basophils/100 WBC (Bld) 0.7 % Normal 0.2-2.0 [facility] Comment on above: Performed By: #### C BC #### [facility] [address] [place] [address] Dr. Nica Stover EO # 0.1 103/ul Normal 0.0-0.7 [facility] Comment on above: Performed By: #### C BC #### [facility] [address] [place] [address] Dr. Nica Stover Eosinophils/100 WBC (Bld) 0.6 % Critically low 0.9-7.0 [facility] Comment on above: Performed By: #### C BC #### [facility] [address] [place] [address] Dr. Nica Stover Erythrocyte distribution width (RBC) [Ratio] 13.6 % Normal 11.0-15.0 [facility] Comment on above: Performed By: #### C BC #### [facility] [address] [place] [address] Dr. Nica Stover Hematocrit (Bld) [Volume fraction] 41.0 % Normal 36.0-48.0 [facility] Comment on above: Performed By: #### C BC #### [facility] [address] [place] [address] Dr. Nica Stover Hemoglobin (Bld) [Mass/Vol] 12.9 g/dL Normal 12.0-16.0 [facility] Comment on above: Performed By: #### C BC #### [facility] [address] [place] [address] Dr. Nica Stover IG # 0.05 10e3/ul Critically high 0.00-0.03 [facility] Comment on above: Performed By: #### C BC #### [facility] [address] [place] [address] Dr. Nica Stover IG % 0.5 % Normal 0.0-0.5 [facility] Comment on above: Performed By: #### C BC #### [facility] [address] [place] [address] Dr. Nica Stover LYMPH # 1.7 103/ul Normal 1.2-3.8 [facility] Comment on above: Performed By: #### C BC #### [facility] [address] [place] [address] Dr. Nica Stover Lymphocytes/100 WBC (Bld) 17.5 % Critically low 20.5-60.0 [facility] Comment on above: Performed By: #### C BC #### [facility] [address] [place] [address] Dr. Nica Stover MANUAL DIFF REQ NO Normal [facility] Comment on above: Performed By: #### C BC #### [facility] [address] [place] [address] Dr. Nica Stover MCH (RBC) [Entitic mass] 29.0 pg Normal 26.7-34.0 [facility] Comment on above: Performed By: #### C BC #### [facility] [address] [place] [address] Dr. Nica Stover MCHC (RBC) [Mass/Vol] 31.5 g/dL Normal 29.9-35.2 [facility] Comment on above: Performed By: #### C BC #### [facility] [address] [address] [address] Nica Stover MCV (RBC) [Entitic vol] 92.1 fL Normal 81.0-99.0 [facility] Comment on above: Performed By: #### C BC #### [facility] [address] [address] [address] Nica Stover MONO # 0.6 103/ul Normal 0.3-0.8 [facility] Comment on above: Performed By: #### C BC #### [facility] [address] [place] [address] Dr. Nica Stover Monocytes/100 WBC (Bld) 5.6 % Normal 1.7-12.0 [facility] Comment on above: Performed By: #### C BC #### [facility] [address] [place] [address] Dr. Nica Stover NEUT # 7.5 103/ul Critically high 1.4-6.5 [facility] Comment on above: Performed By: #### C BC #### [facility] [address] [place] [address] Dr. Nica Stover Neutrophils/100 WBC (Bld) 75.1 % Critically high 43.0-75.0 [facility] Comment on above: Performed By: #### C BC #### [facility] [address] [place] [address] Dr. Nica Stover Platelet mean volume (Bld) [Entitic vol] 10.9 fL Normal 9.5-13.5 [facility] Comment on above: Performed By: #### C BC #### [facility] [address] [place] [address] Dr. Nica Stover PLT 277 103/ul Normal 150-450 [facility] Comment on above: Performed By: #### C BC #### [facility] [address] [place] [address] Dr. Nica Stover RBC 4.45 106/ul Normal 4.20-5.40 [facility] Comment on above: Performed By: #### C BC #### [facility] [address] [address] [address] Nica Stover WBC 10.0 103/ul Normal 4.0-11.0 [facility] Comment on above: Performed By: #### C BC #### [facility] [address] [place], [place] [address] ABD/PELV W CONon 11-04-19 CT ABD/PELV W CON EXAMINATION: CT ABD/PELV W CON HISTORY: GENERALIZED ABDOMINAL PAIN nausea vomiting. COMPARISON: Abdominal x-ray 02/06/2015 TECHNIQUE: Multiple axial views CT abdomen and pelvis after administration of 100 mL Omnipaque 300 IV contrast. Coronal and sagittal reformats. Dose reduction techniques were achieved by using automated exposure control and/or adjustment of mA and/or kV according to patient size and/or use of iterative reconstruction technique. FINDINGS: Visualized lung bases and cardiac apex are unremarkable. Prior cholecystectomy, gastric bypass, appendectomy. Mildly ectatic intrahepatic and extrahepatic bile ducts, likely within reference range of prior cholecystectomy. Common bile duct measuring up to 12 mm diameter. Mild hepatosplenomegaly. Pancreas, right adrenal gland, kidneys, urinary bladder, uterus and other pelvic structures are unremarkable. 1.8 cm right adnexal/ovarian cyst. 2 cm heterogeneous enhancing hypodense left adrenal nodule. Dedicated adrenal mass imaging protocol can further characterize. Multiple lower small bowel ileum fecalization with areas of bowel dilation 3.2 cm (image 21 series 4) but without transition point. No evidence for large ascites, or free air. L4-L5 dorsal fixation device. Chronic arthritic changes of the visualized skeleton. No acute bony abnormality. IMPRESSION: Multiple lower small bowel ileum fecalization reflect sequela of focal ileus/slow transit and/or enteritis. No transition point to indicate bowel obstruction. Mild hepatosplenomegaly. Electronically authenticated by: ELIECER CELESTIN Date: 2021-11-03 00:21 Normal [facility] LIPASEon 11-03-2021 Lipase [Catalytic activity/Vol] 87.0 U/L Normal 23.0-300.0 [facility] Comment on above: Performed By: #### C MP, HSTROPN, LIPA #### [facility] [address] [address] [address] Nica Stover PROF 14(COMP METB)on 022 Albumin [Mass/Vol] 4.1 g/dL Normal 3.4-5.0 [facility] Comment on above: Performed By: #### C MP, HSTROPN, LIPA #### [facility] [address] [address] [address] Nica Stover Albumin/Globulin [Mass ratio] 1.1 {ratio} Normal [facility] Comment on above: Performed By: #### C MP, HSTROPN, LIPA #### [facility] [address] [address] [address] Nica Stover ALP [Catalytic activity/Vol] 84 U/L Normal 46-116 [facility] Comment on above: Performed By: #### C MP, HSTROPN, LIPA #### [facility] [address] [place] [address] Dr. Nica Stover ALT [Catalytic activity/Vol] 48 U/L Normal 14-59 [facility] Comment on above: Performed By: #### C MP, HSTROPN, LIPA #### [facility] [address] [address] [address] Nica Stover Anion gap [Moles/Vol] 13.4 mmol/L Normal [facility] Comment on above: Performed By: #### C MP, HSTROPN, LIPA #### [facility] [address] [address] [address] Nica Stover AST [Catalytic activity/Vol] 34 U/L Normal 15-37 [facility] Comment on above: Performed By: #### C MP, HSTROPN, LIPA #### [facility] [address] [address] [address] Nica Stover Bilirubin [Mass/Vol] 0.3 mg/dL Normal 0.2-1.3 [facility] Comment on above: Performed By: #### C MP, HSTROPN, LIPA #### [facility] [address] [address] [address] Nica Stover Calcium [Mass/Vol] 8.4 mg/dL Critically low 8.5-10.1 [facility] Comment on above: Performed By: #### C MP, HSTROPN, LIPA #### [facility] [address] [address] [address] Nica Stover Chloride [Moles/Vol] 101 mmol/L Normal 98-107 [facility] Comment on above: Performed By: #### C MP, HSTROPN, LIPA #### [facility] [address] [place] [address] Dr. Nica Stover CO2 [Moles/Vol] 27.3 mmol/L Normal 22.0-30.0 [facility] Comment on above: Performed By: #### C MP, HSTROPN, LIPA #### [facility] [address] [place] [address] Dr. Nica Stover Creatinine [Mass/Vol] 0.73 mg/dL Normal 0.52-1.04 [facility] Comment on above: Performed By: #### C MP, HSTROPN, LIPA #### [facility] [address] [place] [address] Dr. Nica Stover EGFR-AF SLOVAK >60 Normal >=60 [facility] Comment on above: Performed By: #### C MP, HSTROPN, LIPA #### [facility] [address] [place] [address] Dr. Nica Stover EGFR-NON AF SLOVAK >60 Normal >=60 [facility] Comment on above: Performed By: #### C MP, HSTROPN, LIPA #### [facility] [address] [place] [address] Dr. Nica Stover Globulin (S) [Mass/Vol] 3.6 g/dL Normal [facility] Comment on above: Performed By: #### C MP, HSTROPN, LIPA #### [facility] [address] [place] [address] Dr. Nica Stover Glucose [Mass/Vol] 178 mg/dL Critically high 74-106 [facility] Comment on above: Performed By: #### C MP, HSTROPN, LIPA #### [facility] [address] [place] [address] Dr. Nica Stover Potassium [Moles/Vol] 3.7 mmol/L Normal 3.4-5.0 [facility] Comment on above: Performed By: #### C MP, HSTROPN, LIPA #### [facility] [address] [place] [address] Dr. Nica Stover Protein [Mass/Vol] 7.7 g/dL Normal 6.1-8.2 [facility] Comment on above: Performed By: #### C MP, HSTROPN, LIPA #### [facility] [address] [place] [address] Dr. Nica Stover Sodium [Moles/Vol] 138 mmol/L Normal 137-145 [facility] Comment on above: Performed By: #### C MP, HSTROPN, LIPA #### [facility] [address] [place] [address] Dr. Nica Stover Urea nitrogen [Mass/Vol] 10.0 mg/dL Normal 7.0-18.0 [facility] Comment on above: Performed By: #### C MP, HSTROPN, LIPA #### [facility] [address] [place] [address] Dr. Nica Stover Urea nitrogen/Creatinin e [Mass ratio] 13.7 mg/mg Normal [facility] Comment on above: Performed By: #### C MP, HSTROPN, LIPA #### [facility] [address] [place] [address] Dr. Nica Stover TROPONIN, HIGH SENSITIVITYon 11-03-2021 HSTROP 6.4 pg/mL Normal 4.0-35.5 [facility] Comment on above: Result Comment: CUT- OFF POINTS HAVE BEEN ESTABLISHED BASED ON THE FOURTH UNIVERSAL DEFINITIONS OF MYOCARDIAL INFARCTION. THE UPPER REFERENCE LIMIT (URL) OF TROPONIN, DEFINED THE 99TH PERCENTILE OF cTnI DISTRIBUTION IN A REFERENCE POPULATION, HAS BEEN CONFIRMED THE DECISION THRESHOLD FOR MA DIAGNOSIS. Performed By: #### C MP, HSTROPN, LIPA #### [facility] [address] [address] [address] Nica Stover XR Hand 2 Views Righton 07-25 XR Hand 2 Views Right HISTORY: Pain, lump FINDINGS: Mild 1st carpometacarpal, 1st MCP, PIP and IP joint space loss. Severe 2nd DIP joint space loss, sclerosis and prominent osteophyte formation. Mild soft tissue swelling along the PIP and DIP joints, greatest involvement 2nd PIP, DIP and 2nd and 5th DIP regions. No acute fracture. IMPRESSION: Erosive osteoarthritis, greatest involvement 2nd DIP joint. Report reported and signed by Scottie Knight on 08/13/2021 1242 Normal [facility] Sexual Assault Social Worker XR Knee Left - OA Protocolon 08-13-2021 XR Knee Left - OA Protocol EXAM: XR BILATERAL KNEE STANDING WEIGHT-BEARING VIEW FINDINGS: Standing weight-bearing view demonstrates mild joint space reduction within the bilateral medial compartments without cortical or subchondral fracture suggested. Menisci are not calcified. IMPRESSION: Arthritic changes as described above. EXAM: XR LEFT KNEE SERIES FINDINGS: Mild medial and moderate to severe patellofemoral joint space reduction is seen (normal patellar tracking). Tibial plateaus are maintained in height. Mild tricompartmental osteophyte formation is present. Menisci are non-calcified. IMPRESSION: Moderate to severe patellofemoral osteoarthritis. Report reported and signed by Scottie Knight on 08/13/2021 1246 Normal [facility] Sexual Assault Social Worker MR lumbar spine wo conon MR lumbar spine wo con [facility] [place] [address] MRI Report Signed Patient: Alyson Fitch MR#: [id number] : 1970 Acct:[id number] Age/Sex: 50 / F ADM Date: 04/14/21 Loc: [facility] Room: Type: [facility] CLI Attending Dr: Ritika Guerra PA-C Ordering Provider: Ritika Guerra PAC Date of Service: 04/14/21 MR/MR lumbar spine wo con: M54.12 ([id number]) MR/MR cervical spine wo con: . ([id number]) XR/XR pre/post mri xray: CSPINE AND LUMBAR MRI Copies to: Ritika Guerra PAC MRI cervical spine, MRI lumbar spine, and plain radiographs cervical and lumbar spine 04/14/2021. CLINICAL DATA: Neck and low back pain with radiation to the upper and lower extremities. TECHNIQUE: MRI of the cervical spine and MRI of the lumbar spine were performed. Three plain radiographs of the cervical spine and two plain radiographs of the lumbar spine were obtained. COMPARISON: Plain radiographs lumbar spine 05/07/2009. MRI CERVICAL SPINE FINDINGS: There is loss of the normal cervical lordosis which could be related to muscle spasm or patient positioning. Vertebral alignment is normal and the intervertebral disc spaces are intact. There is minimal posterior disc bulging at C5-C6 and C6-C7. No significant cervical spinal canal stenosis is identified. No spinal cord compression is seen. No spinal cord signal abnormality is visualized. There is no neural foraminal narrowing on the right or left. No suspicious bony signal abnormality is noted. The paraspinal soft tissues appear unremarkable. PLAIN RADIOGRAPHS CERVICAL SPINE FINDINGS: Vertebral alignment is normal and the intervertebral disc spaces are intact. Minimal discovertebral degenerative changes are identified at C4-C5 and C5- C6. Early facet arthritis is seen. MR/MR cervical spine wo con IMPRESSION: 1. Minimal discovertebral degenerative changes and early facet arthritis. 2. Minimal posterior disc bulging at C5-C6 and C6-C7. 3. No significant cervical spinal canal stenosis. 4. No neural foraminal narrowing. MRI LUMBAR SPINE FINDINGS: There is a laminectomy defect at L4 and the patient is status post L4-L5 posterior and interbody fusion. There are mild posterior malalignment of L2 on L3 and mild anterior malalignment of L4 on L5. Vertebral alignment is otherwise normal and the nonfused intervertebral disc spaces are relatively intact. Discovertebral degenerative changes are identified. Hypertrophic ligamentous and facet joint changes are also seen. There is minimal posterior disc bulging at L2-L3, L3-L4, and L5-S1. No significant lumbar spinal canal stenosis is visualized. There is bilateral neural foraminal narrowing at L4-L5. No suspicious bony signal abnormality is noted. The paraspinal soft tissues appear unremarkable. There is incomplete visualization of a left adrenal nodule. PLAIN RADIOGRAPHS LUMBAR SPINE FINDINGS: Postsurgical changes are noted in the lower lumbar spine. There is mild vertebral malalignment. Discovertebral degenerative changes are identified. Facet arthritis is also seen. IMPRESSION: 1. Status post L4 laminectomy and L4-L5 posterior and interbody fusion. 2. Mild vertebral malalignment. 3. Discovertebral degenerative changes along with hypertrophic ligamentous and facet joint changes. 4. Minimal posterior disc bulging at L2-L3, L3-L4, and L5-S1. 5. No significant lumbar spinal canal stenosis. 6. Bilateral neural foraminal narrowing at L4-L5. Impression dictated by: Ascencion Yee Jr., M.D.04/14/2021 4:14 PM Dictation Location: [place] [address] Transcribed By: [facility] 04/14/21 1614 Dictated By: Ascencion Yee Jr, MD 04/14/21 1555 Signed By: 04/14/21 1614 [facility] Encounters Encounter Date Encounter Type Care Provider Facility Start: 02-06-2024 End: 02-06-2024 ambulatory BRYAN S RUSHER Not Available Start: 01-24-2024 End: 01-24-2024 ambulatory BRYAN S RUSHER Not Available Start: 01-08-2024 End: 01-08-2024 ambulatory BRYAN S RUSHER Not Available Start: 12-15-2023 End: 12-15-2023 ambulatory ANISA A HACKENBURG Not Available Start: 11-06-2023 End: 11-06-2023 ambulatory ANISA A [place] Not Available Start: 10-17-2023 End: 10-17-2023 ambulatory ANISA A [place] Not Available Start: 08-23-2023 End: 08-23-2023 ambulatory BRYAN S RUSHER Not Available Start: 08-04-2023 End: 08-04-2023 ambulatory ANISA A [place] Not Available Start: 06-13-2023 End: 06-13-2023 ambulatory ANISA A [place] Not Available Start: 06-08-2023 End: 06-08-2023 ambulatory ANISA A HACKEN[place]G Not Available Start: 02-07-[address] NIMESH Mederos ty:H1 Start: 12-27-2021 End: 12-28-2021 ambulatory [facility] Facility:[facility] Start: 12-22-2021 End: 12-23-2021 ambulatory [facility] Facility:[facility] Start: 12-07-2021 End: 12-08-2021 ambulatory RITIKA GUERRA Facility:H1 Start: 11-03-2021 End: 11-03-[address] ANTHONY BARNEY Facility:[facility]1 Payers Date Payer Category Payer Unknown [id number] 2023 Private Health Insurance [id number] 1970 Unknown [id number] 2.16.84 [id number] 1970 Unknown [id number] 2.16.84 0.1.247573.3.579.2.593 1971 Unknown [id number] 2.16.84 0.1.072521.3.579.2.593 1971 Unknown [id number] 2.16.84 0.1.466601.3.579.2.593 1970 Unknown [id number] 2.16.84 0.1.639165.3.579.2.593 1971 Unknown [id number] 2.16.84 0.1.128708.3.579.2.1259 1971 Unknown [id number] 2.16.84 0.1.983167.3.579.2.1259 1971 Unknown [id number] 2.16.84 0.1.413704.3.579.2.1259 1971 Unknown [id number] 2.16.84 0.1.248796.3.579.2.1259 1971 Unknown [id number] 2.16.84 0.1.163963.3.579.2.1259 1971 Unknown [id number] 2.16.84 0.1.206037.3.579.2.1259 1971 Unknown [id number] 2.16.84 0.1.323181.3.579.2.1259 1971 Unknown [id number] 2.16.84 0.1.243463.3.579.2.1259 1971 Unknown [id number] 2.16.84 0.1.905564.3.579.2.1259 1971 Unknown [id number] 2.16.840 .1.822142.3.579.2.1259 1971 Unknown [id number] 2.16.840 .1.411283.3.579.2.1259 1959 Private Health Insurance [id number] 1958 Self-pay [id number] 1959 Unknown [id number] 1958 Unknown [id number] Clinical Note 03-09-2022 Note Date & Type Note Facility 03-09-2022 Note Education [employer] Orthopedics Shoulder Pain Many things can cause shoulder pain, including: ? An injury to the shoulder. ? Overuse of the shoulder. ? Arthritis. The source of the pain can be: ? Inflammation. ? An injury to the shoulder joint. ? An injury to a tendon, ligament, or bone. Follow these instructions at home: Pay attention to changes in your symptoms. Let your health care provider know about them. Follow these instructions to relieve your pain. If you have a sling: ? Wear the sling as told by your health care provider. Remove it only as told by your health care provider. ? Loosen the sling if your fingers tingle, become numb, or turn cold and blue. ? Keep the sling clean. ? If the sling is not waterproof: ? Do not let it get wet. Remove it to shower or bathe. ? Move your arm as little as possible, but keep your hand moving to prevent swelling. Managing pain, stiffness, and swelling ? If directed, put ice on the painful area: ? Put ice in a plastic bag. ? Place a towel between your skin and the bag. ? Leave the ice on for 20 minutes, 2?3 times per day. Stop applying ice if it does not help with the pain. ? Squeeze a soft ball or a foam pad as much as possible. This helps to keep the shoulder from swelling. It also helps to strengthen the arm. General instructions ? Take uflg-syn-wcckafm and prescription medicines only as told by your health care provider. ? Keep all follow-up visits as told by your health care provider. This is important. Contact a health care provider if: ? Your pain gets worse. ? Your pain is not relieved with medicines. ? New pain develops in your arm, hand, or fingers. Get help right away if: ? Your arm, hand, or fingers: ? Tingle. ? Become numb. ? Become swollen. ? Become painful. ? Turn white or blue. Summary ? Shoulder pain can be caused by an injury, overuse, or arthritis. ? Pay attention to changes in your symptoms. Let your health care provider know about them. ? This condition may be treated with a sling, ice, and pain medicines. ? Contact your health care provider if the pain gets worse or new pain develops. Get help right away if your arm, hand, or fingers tingle or become numb, swollen, or painful. ? Keep all follow-up visits as told by your health care provider. This is important. This information is not intended to replace advice given to you by your health care provider. Make sure you discuss any questions you have with your health care provider. Document Revised: 01/22/2019 Document Reviewed: 01/22/2019 [employer] Patient Education ? 2020 [employer] Chest Wall Pain Chest wall pain is pain in or around the bones and muscles of your chest. Sometimes, an injury causes this pain. Excessive coughing or overuse of arm and chest muscles may also cause chest wall pain. Sometimes, the cause may not be known. This pain may take several weeks or longer to get better. Follow these instructions at home: Managing pain, stiffness, and swelling ? If directed, put ice on the painful area: ? Put ice in a plastic bag. ? Place a towel between your skin and the bag. ? Leave the ice on for 20 minutes, 2?3 times per day. Activity ? Rest as told by your health care provider. ? Avoid activities that cause pain. These include any activities that use your chest muscles or your abdominal and side muscles to lift heavy items. Ask your health care provider what activities are safe for you. General instructions ? Take caqh-sjy-fsxmmrv and prescription medicines only as told by your health care provider. ? Do not use any products that contain nicotine or tobacco, such as cigarettes, e-cigarettes, and chewing tobacco. These can delay healing after injury. If you need help quitting, ask your health care provider. ? Keep all follow-up visits as told by your health care provider. This is important. Contact a health care provider if: ? You have a fever. ? Your chest pain becomes worse. ? You have new symptoms. Get help right away if: ? You have nausea or vomiting. ? You feel sweaty or light-headed. ? You have a cough with mucus from your lungs (sputum) or you cough up blood. ? You develop shortness of breath. These symptoms may represent a serious problem that is an emergency. Do not wait to see if the symptoms will go away. Get medical help right away. Call your local emergency services (911 in the [place] Do not drive yourself to the hospital. Summary ? Chest wall pain is pain in or around the bones and muscles of your chest. ? Depending on the cause, it may be treated with ice, rest, medicines, and avoiding activities that cause pain. ? Contact a health care provider if you have a fever, worsening chest pain, or new symptoms. ? Get help right away if you feel light-headed or you develop shortness of breath. These symptoms may be an (more content not included)... [facility] Summary Purpose Family History No Family History Records FoundNo Family History Records FoundNo Family History Records FoundNo Family History Records FoundNo Family History Records Found Advance Directives No Advanced Directives Records FoundNo Advanced Directives Records FoundNo Advanced Directives Records FoundNo Advanced Directives Records FoundNo Advanced Directives Records Found Additional Source Comments INFORMATION SOURCE (unrecogn ized section and content) DATE CREATED AUTHOR 08/17/2021 [facility] DATE CREATED AUTHOR AUTHOR'S ORGANIZ ATION 02/11/2022 [facility] DATE CREATED AUTHOR AUTHOR'S ORGANIZ ATION 03/25/2022 [facility] DATE CREATED AUTHOR AUTHOR'S ORGANIZ ATION 05/26/2022 [facility] DATE CREATED AUTHOR AUTHOR'S ORGANIZ ATION 02/10/2024 [facility] FOR RECORDS PERTAINING TO PATIENTS WHO ARE OR HAVE BEEN ENROLLED IN A CHEMICAL DEPENDENCY/SUBSTANCEABUSE PROGRAM, SOME INFORMATION MAY BE OMITTED. This clinical summary was aggregated from multiple sources. Caution should be exercised in using it in the provision of clinical care. This summary normalizes information from multiple sources, and as a consequence, information in this document may materially change the coding, format and clinical context of patient data. In addition, data may be omitted in some cases. CLINICAL DECISIONS SHOULD BE BASED ON THE PRIMARY CLINICAL RECORDS. [facility] [employer] [facility]. provides no warranty or guarantee of the accuracy or completeness of information in this document.
--- NOTE | 2024-02-17 19:19 | ECG_ITS ---
[facility] Test Date: 2024-02-17 Pat Name: PRADEEP FITCH Department: Room: - Gender: Female [place]: : 1970 Requested By: [id number] Order Number: [id number] Reading MD: JULIAN MITCHELL Measurements Intervals [place] Rate: 63 P: 75 NC: 190 QRS: 25 QRSD: 94 T: 46 QT: 406 QTc: 414 Interpretive Statements 1100 Sinus rhythm 8102 Low QRS voltage in chest leads 9120 atypical ECG Compared to ECG 11/02/2021 23:09:07 No significant changes Electronically Signed On 02-18-2024 16:48:53 EDT by JULIAN MITCHELL
--- NOTE | 2024-02-17 19:52 | ED_ITS ---
HPI HPI - Fall General Chief Complaint: Fall Stated Complaint: FALL Time Seen by Provider: 02/17/24 19:47 Source: patient Mode of arrival: Wheelchair Limitations: no limitations History of Present Illness HPI Narrative: patient states she passed out at work4 days ago. Bruised her left knee and right hip. large hematoma right proximal thigh from fainting. Also bruised her right elbow. States past history of fainting but now for several years. Was not seen after the syncopal episode. Today helping to move out of the house and was pushing a hoang down the stairs and loss her balance falling and rolling down the stairs around 5:30pm. Reinjured her right hip. also has pain right FA and elbow and right shoulder . struck her face. No LOC. Has right sided neck pain. No weakness or numbness of her extremities. No dizziness or nausea. Does have a headache. Not short of breath but right ribs sore Related Data Home Medications ?Medication ?Instructions ?Recorded ?Confirmed bupropion HCl 300 mg 24 hr tablet, 300 mg PO DAILY 02/17/24 02/17/24 extended release buspirone 5 mg tablet 5 mg PO BID 02/17/24 02/17/24 fluticasone propionate 50 2 spray intranasal DAILY 02/17/24 02/17/24 mcg/actuation nasal spray,suspension ropinirole 0.25 mg tablet 0.25 mg PO BEDTIME 02/17/24 02/17/24 sertraline 50 mg tablet 75 mg PO Q24H 02/17/24 02/17/24 trazodone 100 mg tablet 100 mg PO BEDTIME 02/17/24 02/17/24 Allergies Allergy/AdvReac Type Severity Reaction Status Date / Time NSAIDS (Non-Steroidal AdvReac Unknown Gastrointestinal Verified 02/17/24 19:14 Anti-Inflamma Upset Opioid HPI Opioid Management Most Recent Pain and Opioid Data: 2 Last Pain Scale 7 07/30/23 22:48 Review of Systems 2 ROS0 Status of ROS 10 or more systems reviewed and unremark able except as noted in history and below PFSH PFSH Social History Smoking status: Former smoker Exam Constitutional Vital Signs, click to edit/add: Last Vital Signs Temp 98.8 F 02/17/24 19:14 Pulse 64 02/17/24 20:00 Resp 19 02/17/24 20:00 BP 104/66 02/17/24 22:00 Pulse Ox 98 02/17/24 22:00 O2 Del Method Room Air 02/17/24 19:14 Common normals: no apparent distress, average body habitus, oriented x3, no limitations, healthy appearing, alert and well nourished [facility] Other: abrasions about her nose Eye Common normals: PERRL, EOMs intact bilaterally and conjunctivae normal Neck & C-Spine Common normals: full ROM Chest Other: right chest wall tender. no crepitus Respiratory Common normals: normal respiratory effort, no retractions, no use of accessory muscles and clear to auscultation bilaterally Cardio Common normals: regular rate, regular rhythm, S1 normal heart sound and S2 normal heart sound GI Common normals: Normal to inspection, nondistended, normoactive bowel sounds present, soft to palpation and non-tender Extremity Other: minor abrasion right elbow. mild tenderness right FA. no swelling. tenderness right shoulder. no deformity large ecchymosis right inner thigh. contusion left knee Extremity image (front): 2 1. large hematoma 2. left knee contusion. no swelling Neuro Common normals: oriented x3, CN's II-XII intact bilaterally, moves all extremities and no focal motor deficits Psych Appearance: grossly normal Course Vital Signs Vital signs: Vital Signs Temperature 98.8 F 02/17/24 19:14 Pulse Rate 65 02/17/24 19:14 Respiratory Rate 18 02/17/24 19:14 Blood Pressure 138/81 02/17/24 19:14 Pulse Oximetry 99 02/17/24 19:14 Oxygen Delivery Method Room Air 02/17/24 19:14 Temperature 98.8 F 02/17/24 19:14 Pulse Rate 64 02/17/24 20:00 Respiratory Rate 19 02/17/24 20:00 Blood Pressure 104/66 02/17/24 22:00 Pulse Oximetry 98 02/17/24 22:00 Oxygen Delivery Method Room Air 02/17/24 19:14 MDM - Fall MDM Narrative Medical decision making narrative: patient passed out 5 days ago and injured her right thigh, elbow and left knee. did not seek medical attention. She was at work. tonight she fell down the stairs trying to push a hoang down the stairs. Describes rolling down the stairs. Found to have tenderness of her right shoulder, clavicle, chest wall, forearm and elbow. large area of hematoma right thigh which occurred after syncopal episode 5 days ago. also left knee contusion with same syncopal episode. diagnostic studies neg for acute findings. right AC joint nontender patient also informed of the left adrenal nodule 2.9cm. patient informed to have her doctor followup with the adrenal lesion she remains stable and will be discharged to followup with her doctor Lab Data Labs: Lab Results 02/17/24 02/17/24 Range/Units 20:08 20:58 WBC 6.6 (4.0-11.0) 10^3/uL RBC 4.27 (4.20-5.40) 10^6/uL Hgb 12.4 (12.0-16.0) g/dL Hct 38.5 (36.0-48.0) % MCV 90.2 (81.0-99.0) fL MCH 29.0 (26.7-34.0) pg MCHC 32.2 (29.9-35.2) g/dL RDW 13.2 (11.0-15.0) % Plt Count 234 (150-450) 10^3/uL MPV 11.2 (9.5-13.5) fL Neut % (Auto) 59.2 (43.0-75.0) % Lymph % (Auto) 30.3 (20.5-60.0) % [place] % (Auto) 7.8 (1.7-12.0) % Eos % (Auto) 1.5 (0.9-7.0) % Baso % (Auto) 0.9 (0.2-2.0) % Neut # (Auto) 3.9 (1.4-6.5) 10^3/uL Lymph # (Auto) 2.0 (1.2-3.8) 10^3/uL [place] # (Auto) 0.5 (0.3-0.8) 10^3/uL Eos # (Auto) 0.1 (0.0-0.7) 10^3/uL Baso # (Auto) 0.1 (0.0-0.1) 10^3/uL Abs Immat Gran (auto) 0.02 (0.00-0.03) 10^3/uL Imm/Tot Granulo (auto) 0.3 (0.0-0.5) % Sodium 138 (136-145) mmol/L Potassium 3.5 (3.5-5.1) mmol/L Chloride 102 (98-107) mmol/L Carbon Dioxide 29.0 (21.0-32.0) mmol/L Anion Gap 10.5 BUN 9.0 (7.0-18.0) mg/dL Creatinine 0.67 (0.55-1.02) mg/dL Est GFR ( Amer) >60 (>=60) Est GFR (Non-Af Amer) >60 (>=60) BUN/Creatinine Ratio 13.4 Glucose 112 H (74-106) mg/dL Lactate 0.4 (0.4-2.0) mmol/L Calcium 8.4 L (8.5-10.1) mg/dL Total Bilirubin 0.3 (0.2-1.0) mg/dL AST 24 (15-37) U/L ALT 34 (14-59) U/L Alkaline Phosphatase 99 (46-116) U/L Troponin I High Sens 5.3 (4.0-51.3) pg/mL Total Protein 6.9 (6.4-8.2) g/dL Albumin 3.7 (3.4-5.0) g/dL Globulin 3.2 g/dL Albumin/Globulin Ratio 1.2 Urine Color Lt. yellow (YELLOW) Urine Clarity Clear (CLEAR) Urine pH 6.0 (5.0-9.0) Ur Specific [place] <=1.005 A (1.005-1.025) Urine Protein Negative (NEG/TRACE) mg/dL Urine Glucose (UA) Negative (NEGATIVE) mg/dL Urine Ketones Negative (NEGATIVE) mg/dL Urine Occult Blood Negative (NEGATIVE) Urine Nitrite Negative (NEGATIVE) Urine Bilirubin Negative (NEGATIVE) Urine Urobilinogen 0.2 (0.2-1.0) EU/dL Ur Leukocyte Esterase Trace A (NEGATIVE) Urine RBC 0-2 (0-2) #/HPF Urine WBC 0-2 A (NONE SEEN) #/HPF Ur Squamous Epith Cells Rare (NONE/RARE) #/LPF Urine Crystals None seen (None Seen) #/HPF Urine Bacteria None seen (NONE SEEN) #/HPF Urine Casts None seen (NONE SEEN) #/LPF Urine Mucus None seen (NONE SEEN) Ur Culture Indicated? No Imaging Data Chest x-ray: Radiologist's impression: ITS Impressions Cervical Spine CT 02/17/24 19:57 IMPRESSION: 1. Degenerative change of the cervical vertebral column without CT evidence of an acute fracture. 2. If there is further clinical indication to evaluate the spinal canal, cord or for ligamentous injury consider MRI as it would be more sensitive. Electronically authenticated by: DAVID CARLTON Date: 02/17/2024 21:[address] 02/17/24 19:57 IMPRESSION: 1. No evidence of acute traumatic injury to the chest, abdomen, or pelvis. 2. Small hiatal hernia. 3. A 2.9 centimeter left adrenal nodule, indeterminate, mildly enlarged compared to the prior study dated 11/03/2011 and it measured approximately 2.[address] adrenal protocol for further evaluation as clinically warranted. 4. Small left adnexal cyst measuring 1.9 centimeters which may represent a paraovarian cyst. 5. Osteopenia. 6. Other nonacute findings as detailed in the body of the report. Electronically authenticated by: FALGUNI HAILE Date: 02/17/2024 21:[address] 02/17/24 19:57 IMPRESSION: No CT evidence of an acute maxillofacial fracture. Electronically authenticated by: DAVID CARLTON Date: 02/17/2024 21:47 Forearm X-Ray 02/17/24 19:57 IMPRESSION: No acute osseous abnormality of the right forearm or right hip. Widening of the acromioclavicular joint is thought to be chronic and may may be related distal clavicular resection or resection. Correlate for pain in this region. Electronically authenticated by: FALGUNI HAILE Date: 02/17/2024 21:[address] 02/17/24 19:57 IMPRESSION: No CT evidence of an acute intracranial process or acute calvarial fracture. Electronically authenticated by: DAVID CARLTON Date: 02/17/2024 21:38 Hip/Pelvis X-Ray 02/17/24 19:57 IMPRESSION: No acute osseous abnormality of the right forearm or right hip. Widening of the acromioclavicular joint is thought to be chronic and may may be related distal clavicular resection or resection. Correlate for pain in this region. Electronically authenticated by: VANDANALonnie HAILE Date: 02/17/2024 21:31 Shoulder X-Ray 02/17/24 19:57 IMPRESSION: No acute osseous abnormality of the right forearm or right hip. Widening of the acromioclavicular joint is thought to be chronic and may may be related distal clavicular resection or resection. Correlate for pain in this region. Electronically authenticated by: VNADANALonnie HAILE Date: 02/17/2024 21:31 Abdomen/Pelvis CT 02/17/24 19:58 IMPRESSION: 1. No evidence of acute traumatic injury to the chest, abdomen, or pelvis. 2. Small hiatal hernia. 3. A 2.9 centimeter left adrenal nodule, indeterminate, mildly enlarged compared to the prior study dated 11/03/2011 and it measured approximately 2.[address] adrenal protocol for further evaluation as clinically warranted. 4. Small left adnexal cyst measuring 1.9 centimeters which may represent a paraovarian cyst. 5. Osteopenia. 6. Other nonacute findings as detailed in the body of the report. Electronically authenticated by: VANDANALonnie HAILE Date: 02/17/2024 21:47 Discharge Plan Discharge Stand Alone Forms: Portal Instructions Chief Complaint: Fall Clinical Impression: Contusion of face, Chest wall contusion, Contusion of hip, right, Adrenal nodule, Contusion of knee, left, Cervical muscle strain Patient Disposition: Home, Self-Care Prescriptions / Home Meds: No Action buspirone 5 mg tablet 5 mg PO BID trazodone 100 mg tablet 100 mg PO BEDTIME ropinirole 0.25 mg tablet 0.25 mg PO BEDTIME fluticasone propionate 50 mcg/actuation spray,suspension 2 spray INTRANASAL DAILY sertraline 50 mg tablet 75 mg PO Q24H bupropion HCl 300 mg tablet extended release 24 hr 300 mg PO DAILY Print Language: Albanian Instructions: Cervical Strain (ED), Hip Contusion (ED), Rib Contusion (ED), Facial Contusion (ED) Additional Instructions: follow up with your doctor next week for followup use ibuprofen or similar for pain Referrals: ELAINE WEBB [Primary Care Provider] - 1 week
--- NOTE | 2024-02-17 19:57 | XR_ITS ---
The [place] [id number] Patient Name: PRADEEP FITCH MRN: [id number] date: 1970 Sex: F Assigned Patient Location: ER Current Patient Location: ER Accession/Order Number: [id number] Exam Date: 02/17/2024 20:23 Report Date: 02/17/2024 21:31 At the request of: KOBY CHICAS Procedure: XR shoulder RT min 2V XR forearm RT 2V, XR shoulder RT min 2V, XR hip RT 2V w/ pelvis 02/17/2024 8:23 PM EDT CLINICAL INDICATION: Trauma COMPARISON: None. TECHNIQUE: 3 views of the right shoulder. 3 views of the right hip. 2 views of the right forearm FINDINGS: Right shoulder The bones are intact. The alignment is anatomic. There is widening of the acromioclavicular joint to 9 millimeters. There are degenerative changes of the joints. The soft tissues are grossly unremarkable. Right forearm The bones are intact. The alignment is anatomic. There are degenerative changes of the joints. The soft tissue are grossly unremarkable. Right hip The bones are intact. The alignment is anatomic. There are degenerative changes of the joints. The soft tissues are grossly unremarkable. XR/XR shoulder RT min 2V IMPRESSION: No acute osseous abnormality of the right forearm or right hip. Widening of the acromioclavicular joint is thought to be chronic and may may be related distal clavicular resection or resection. Correlate for pain in this region. Electronically authenticated by: FALGUNI HAILE Date: 02/17/2024 21:31
--- NOTE | 2024-02-17 19:57 | CT_ITS ---
[address] [address] Patient Name: PRADEEP FITCH MRN: [id number] date: 1970 Sex: F Assigned Patient Location: ER Current Patient Location: ER Accession/Order Number: [id number] Exam Date: 02/17/2024 20:23 Report Date: 02/17/2024 21:47 At the request of: KOBY CHICAS Procedure: CT chest w con EXAM: CT chest w con, CT abdomen pelvis w con HISTORY: trauma COMPARISON: 03/09/2022, 11/02/2021 TECHNIQUE: CT of the chest and CT of abdomen and pelvis with intravenous contrast. Dose reduction techniques were achieved by using automated exposure control and/or adjustment of mA and/or kV according to patient size and/or use of iterative reconstruction technique. FINDINGS: TUBES AND IMPLANTS: L4-L5 posterior fusion hardware with interbody graft. CHEST: CHEST WALL AND LOWER NECK: Unremarkable. MEDIASTINUM AND CT: No hematoma. No enlarged lymph nodes by CT size criteria. Small hiatal hernia. AORTA: No aneurysm. HEART: Unremarkable. PULMONARY ARTERIES: No large central pulmonary embolism CORONARY ARTERIES: No coronary artery calcifications. LUNG AND AIRWAYS: Unremarkable. PLEURA: Unremarkable. BONES: No suspicious lesions. No acute fracture or dislocation. Mild degenerative changes of the spine. Osteopenia. ABDOMEN and PELVIS ABDOMINAL WALL AND SOFT TISSUES: Unremarkable. BONES: No suspicious lesions. Postsurgical changes of L4-L5 posterior fusion. Multilevel degenerative changes of the spine. ARTERIES: No aortoiliac aneurysm VEINS: Unremarkable. LYMPH NODES: Unremarkable. PERITONEUM/ RETROPERITONEUM: Unremarkable. BOWEL: Postsurgical changes related to gastric bypass surgery. No obstruction. APPENDIX: Not identified. LIVER: No suspicious lesions. GALLBLADDER: Surgically absent. There appears to be a remnant cystic duct BILE DUCTS: Not dilated SPLEEN: Unremarkable. PANCREAS: Unremarkable. ADRENALS: There is a 2.9 centimeter left adrenal nodule, indeterminate. Unremarkable right adrenal gland. KIDNEYS/ URETERS: Unremarkable. REPRODUCTIVE ORGANS: Small left adnexal cyst measuring 1.9 centimeters, otherwise unremarkable. URINARY BLADDER: Unremarkable. CT/CT chest w con IMPRESSION: 1. No evidence of acute traumatic injury to the chest, abdomen, or pelvis. 2. Small hiatal hernia. 3. A 2.9 centimeter left adrenal nodule, indeterminate, mildly enlarged compared to the prior study dated 11/03/2011 and it measured approximately 2.[address] adrenal protocol for further evaluation as clinically warranted. 4. Small left adnexal cyst measuring 1.9 centimeters which may represent a paraovarian cyst. 5. Osteopenia. 6. Other nonacute findings as detailed in the body of the report. Electronically authenticated by: FALGUNI HAILE Date: 02/17/2024 21:47
--- NOTE | 2024-02-17 19:57 | XR_ITS ---
The [address] [address] Patient Name: PRADEEP FITCH MRN: [id number] date: 1970 Sex: F Assigned Patient Location: ER Current Patient Location: ER Accession/Order Number: [id number] Exam Date: 02/17/2024 20:23 Report Date: 02/17/2024 21:31 At the request of: KOBY CHICAS Procedure: XR hip RT 2V w/ pelvis XR forearm RT 2V, XR shoulder RT min 2V, XR hip RT 2V w/ pelvis 02/17/2024 8:23 PM EDT CLINICAL INDICATION: Trauma COMPARISON: None. TECHNIQUE: 3 views of the right shoulder. 3 views of the right hip. 2 views of the right forearm FINDINGS: Right shoulder The bones are intact. The alignment is anatomic. There is widening of the acromioclavicular joint to 9 millimeters. There are degenerative changes of the joints. The soft tissues are grossly unremarkable. Right forearm The bones are intact. The alignment is anatomic. There are degenerative changes of the joints. The soft tissue are grossly unremarkable. Right hip The bones are intact. The alignment is anatomic. There are degenerative changes of the joints. The soft tissues are grossly unremarkable. XR/XR hip RT 2V w/ pelvis IMPRESSION: No acute osseous abnormality of the right forearm or right hip. Widening of the acromioclavicular joint is thought to be chronic and may may be related distal clavicular resection or resection. Correlate for pain in this region. Electronically authenticated by: FALGUNI HAILE Date: 02/17/2024 21:31
--- NOTE | 2024-02-17 19:57 | CT_ITS ---
The [address] [address] Patient Name: PRADEEP FITCH MRN: [id number] date: 1970 Sex: F Assigned Patient Location: ER Current Patient Location: ER Accession/Order Number: [id number] Exam Date: 02/17/2024 20:23 Report Date: 02/17/2024 21:47 At the request of: KOBY CHICAS Procedure: CT facial bones wo con EXAM: CT facial bones wo con HISTORY: trauma fall down multiple steps. COMPARISON: None. TECHNIQUE: Axial images were obtained through the maxillofacial bones without contrast enhancement. Sagittal and coronal reformations were provided. FINDINGS: No CT evidence of an acute maxillofacial fracture. Only mild mucosal thickening is seen within the paranasal sinuses. The mastoids are well-aerated. The intra and extraconal orbital fat is homogeneous. The globes, optic nerve sheaths, rectus muscles and lacrimal glands appear normal. CT/CT facial bones wo con IMPRESSION: No CT evidence of an acute maxillofacial fracture. Electronically authenticated by: DAVID CARLTON Date: 02/17/2024 21:47
--- NOTE | 2024-02-17 19:57 | CT_ITS ---
The [address] [address] Patient Name: PRADEEP FITCH MRN: [id number] date: 1970 Sex: F Assigned Patient Location: ER Current Patient Location: Accession/Order Number: [id number] Exam Date: 02/17/2024 20:23 Report Date: 02/17/2024 21:43 At the request of: KOBY CHICAS Procedure: CT cervical spine wo con EXAM: CT cervical spine wo con HISTORY: trauma fall down multiple steps. COMPARISON: None. TECHNIQUE: Axial images of the cervical spine were obtained without contrast enhancement. Sagittal and coronal reformations were provided. Dose reduction techniques were achieved by using automated exposure control and/or adjustment of mA and/or kV according to patient size and/or use of iterative reconstruction technique COMMENT: The lack of intradural contrast and streak artifact from bone about the vertebral column limit evaluation for disc protrusion, bulge and the spinal canal in general. FINDINGS: No CT evidence of an acute fracture, subluxation or significant loss of vertebral body height. No significant loss of disc space is seen. There is mild endplate osteophyte formation at the C4-C5 level. No malalignment at the craniocervical junction. There appears to be disc bulging at C5-C6, as well as small posterior midline disc protrusions at C3-C4 and C4-C5. While assessment is again suboptimal on this noncontrast CT, no convincing evidence of high-grade spinal canal stenosis. Facet degenerative change is also noted. CT/CT cervical spine wo con IMPRESSION: 1. Degenerative change of the cervical vertebral column without CT evidence of an acute fracture. 2. If there is further clinical indication to evaluate the spinal canal, cord or for ligamentous injury consider MRI as it would be more sensitive. Electronically authenticated by: DAVID CARLTON Date: 02/17/2024 21:43
--- NOTE | 2024-02-17 19:57 | XR_ITS ---
The [place] [id number] Patient Name: PRADEEP FITCH MRN: [id number] date: 1970 Sex: F Assigned Patient Location: ER Current Patient Location: ER Accession/Order Number: [id number] Exam Date: 02/17/2024 20:23 Report Date: 02/17/2024 21:31 At the request of: KOBY CHICAS Procedure: XR forearm RT 2V XR forearm RT 2V, XR shoulder RT min 2V, XR hip RT 2V w/ pelvis 02/17/2024 8:23 PM EDT CLINICAL INDICATION: Trauma COMPARISON: None. TECHNIQUE: 3 views of the right shoulder. 3 views of the right hip. 2 views of the right forearm FINDINGS: Right shoulder The bones are intact. The alignment is anatomic. There is widening of the acromioclavicular joint to 9 millimeters. There are degenerative changes of the joints. The soft tissues are grossly unremarkable. Right forearm The bones are intact. The alignment is anatomic. There are degenerative changes of the joints. The soft tissue are grossly unremarkable. Right hip The bones are intact. The alignment is anatomic. There are degenerative changes of the joints. The soft tissues are grossly unremarkable. XR/XR forearm RT 2V IMPRESSION: No acute osseous abnormality of the right forearm or right hip. Widening of the acromioclavicular joint is thought to be chronic and may may be related distal clavicular resection or resection. Correlate for pain in this region. Electronically authenticated by: FALGUNI HAILE Date: 02/17/2024 21:31
--- NOTE | 2024-02-17 19:57 | CT_ITS ---
The [address] [address] Patient Name: PRADEEP FITCH MRN: [id number] date: 1970 Sex: F Assigned Patient Location: ER Current Patient Location: ER Accession/Order Number: [id number] Exam Date: 02/17/2024 20:23 Report Date: 02/17/2024 21:38 At the request of: KOBY CHICAS Procedure: CT head/brain wo con EXAM: CT head/brain wo con HISTORY: Trauma. Fall down multiple steps with head injury and right-sided pain. COMPARISON: None. TECHNIQUE: Axial images of the brain were obtained from the skull base through inupiat of [place] following the intravenous administration of contrast. Sagittal and coronal reformations were provided. FINDINGS: No acute intracranial hemorrhage, extra-axial fluid collection, midline shift or mass effect is seen. No space-occupying lesion is demonstrated. There is no evidence of hydrocephalus or an acute ischemic event. The paranasal sinuses and mastoids are well-aerated. Bone windows reveal no evidence of an acute calvarial fracture.. CT/CT head/brain wo con IMPRESSION: No CT evidence of an acute intracranial process or acute calvarial fracture. Electronically authenticated by: DAVID CARLTON Date: 02/17/2024 21:38
--- NOTE | 2024-02-17 19:58 | CT_ITS ---
[address] [address] Patient Name: PRADEEP FITCH MRN: [id number] date: 1970 Sex: F Assigned Patient Location: ER Current Patient Location: ER Accession/Order Number: [id number] Exam Date: 02/17/2024 20:23 Report Date: 02/17/2024 21:47 At the request of: KOBY CHICAS Procedure: CT abdomen pelvis w con EXAM: CT chest w con, CT abdomen pelvis w con HISTORY: trauma COMPARISON: 03/09/2022, 11/02/2021 TECHNIQUE: CT of the chest and CT of abdomen and pelvis with intravenous contrast. Dose reduction techniques were achieved by using automated exposure control and/or adjustment of mA and/or kV according to patient size and/or use of iterative reconstruction technique. FINDINGS: TUBES AND IMPLANTS: L4-L5 posterior fusion hardware with interbody graft. CHEST: CHEST WALL AND LOWER NECK: Unremarkable. MEDIASTINUM AND CT: No hematoma. No enlarged lymph nodes by CT size criteria. Small hiatal hernia. AORTA: No aneurysm. HEART: Unremarkable. PULMONARY ARTERIES: No large central pulmonary embolism CORONARY ARTERIES: No coronary artery calcifications. LUNG AND AIRWAYS: Unremarkable. PLEURA: Unremarkable. BONES: No suspicious lesions. No acute fracture or dislocation. Mild degenerative changes of the spine. Osteopenia. ABDOMEN and PELVIS ABDOMINAL WALL AND SOFT TISSUES: Unremarkable. BONES: No suspicious lesions. Postsurgical changes of L4-L5 posterior fusion. Multilevel degenerative changes of the spine. ARTERIES: No aortoiliac aneurysm VEINS: Unremarkable. LYMPH NODES: Unremarkable. PERITONEUM/ RETROPERITONEUM: Unremarkable. BOWEL: Postsurgical changes related to gastric bypass surgery. No obstruction. APPENDIX: Not identified. LIVER: No suspicious lesions. GALLBLADDER: Surgically absent. There appears to be a remnant cystic duct BILE DUCTS: Not dilated SPLEEN: Unremarkable. PANCREAS: Unremarkable. ADRENALS: There is a 2.9 centimeter left adrenal nodule, indeterminate. Unremarkable right adrenal gland. KIDNEYS/ URETERS: Unremarkable. REPRODUCTIVE ORGANS: Small left adnexal cyst measuring 1.9 centimeters, otherwise unremarkable. URINARY BLADDER: Unremarkable. CT/CT abdomen pelvis w con IMPRESSION: 1. No evidence of acute traumatic injury to the chest, abdomen, or pelvis. 2. Small hiatal hernia. 3. A 2.9 centimeter left adrenal nodule, indeterminate, mildly enlarged compared to the prior study dated 11/03/2011 and it measured approximately 2.[address] adrenal protocol for further evaluation as clinically warranted. 4. Small left adnexal cyst measuring 1.9 centimeters which may represent a paraovarian cyst. 5. Osteopenia. 6. Other nonacute findings as detailed in the body of the report. Electronically authenticated by: FALGUNI HAILE Date: 02/17/2024 21:47
[2024-02-17 20:17] LABS: Basophils Absolute Auto 0.1 10^3/uL (0.0-0.1); Basophils Percent Auto 0.9 % (0.2-2.0); Eosinophils Absolute Auto 0.1 10^3/uL (0.0-0.7); Eosinophils Percent Auto 1.5 % (0.9-7.0); Hematocrit 38.5 % (36.0-48.0); Hemoglobin 12.4 g/dL (12.0-16.0); Immature Granulocytes Abs Auto 0.02 10^3/uL (0.00-0.03); Immature Granulocytes Pct Auto 0.3 % (0.0-0.5); Lymphocytes Percent Auto 30.3 % (20.5-60.0); Mean Corpuscular HGB Conc 32.2 g/dL (29.9-35.2); Mean Corpuscular Volume 90.2 fL (81.0-99.0); Mean Platelet Volume 11.2 fL (9.5-13.5); Monocytes Absolute Auto 0.5 10^3/uL (0.3-0.8); Monocytes Percent Auto 7.8 % (1.7-12.0); Neutrophils Absolute Auto 3.9 10^3/uL (1.4-6.5); Neutrophils Percent Auto 59.2 % (43.0-75.0); Platelet Count 234 10^3/uL (150-450); Red Blood Count 4.27 10^6/uL (4.20-5.40); Red Cell Distribution Width 13.2 % (11.0-15.0); White Blood Count 6.6 10^3/uL (4.0-11.0)
[2024-02-17 20:40] LABS: Lactate/Lactic Acid 0.4 mmol/L (0.4-2.0)
[2024-02-17 20:47] LABS: Alanine Aminotransferase 34 U/L (14-59); Albumin Globulin Ratio 1.2; Albumin Level 3.7 g/dL (3.4-5.0); Alkaline Phosphatase 99 U/L (46-116); Anion Gap 10.5; Aspartate Amino Transferase 24 U/L (15-37); BUN Creatinine Ratio 13.4; Bilirubin Total 0.3 mg/dL (0.2-1.0); Calcium 8.4 mg/dL (8.5-10.1); Chloride 102 mmol/L (98-107); Estimated GFR (African America >60 (>=60); Estimated GFR (Non-African Ame >60 (>=60); Globulin 3.2 g/dL; Glucose 112 mg/dL (74-106); Potassium 3.5 mmol/L (3.5-5.1); Sodium 138 mmol/L (136-145); Total Protein 6.9 g/dL (6.4-8.2); Troponin I High Sensitivity 5.3 pg/mL (4.0-51.3)
[2024-02-17] MEDS: 0.9 % SODIUM CHLORIDE 1,000 ML 999 ML IV (20:59)
[2024-02-17 21:04] LABS: Bilirubin Urine NEGATIVE (NEGATIVE); Blood Urine NEGATIVE (NEGATIVE); Clarity Urine CLEAR (CLEAR); Color Urine LT. YELLOW (YELLOW); Glucose Urine UA NEGATIVE (NEGATIVE); Ketones Urine NEGATIVE (NEGATIVE); Leukocyte Esterase Urine TRACE (NEGATIVE); Nitrite Urine NEGATIVE (NEGATIVE); Protein Urine NEGATIVE (NEG/TRACE); Specific Gravity Urine <=1.005 (1.005-1.025); Urobilinogen Urine 0.2 EU/dL (0.2-1.0)
[2024-02-17 21:06] LABS: Urine Microscopic Indicated YES
[2024-02-17 21:18] LABS: RBC Urine 0-2 #/HPF (0-2); WBC Urine 0-2 #/HPF (NONE SEEN)
[2024-02-17 21:19] LABS: Bacteria Urine NONE SEEN #/HPF (NONE SEEN); Cast Seen? NONE SEEN #/LPF (NONE SEEN); Crystals Seen? None Seen #/HPF (None Seen); Mucus Urine NONE SEEN (NONE SEEN); Squamous Epithelial Cell Urine RARE #/LPF (NONE/RARE); Urine Culture Indicated NO
== END 2024-02-17 22:38 | disposition home or self-care (01) ==
PROVIDERS: Emergency Provider Internal Medicine; PCP Family Medicine
DX: S16.1XXA Strain of muscle, fascia and tendon at neck level, initial encounter (principal); S00.83XA Contusion of other part of head, initial encounter; S70.01XA Contusion of right hip, initial encounter; S80.02XA Contusion of left knee, initial encounter; S20.219A Contusion of unspecified front wall of thorax, initial encounter; W10.9XXA Fall (on) (from) unspecified stairs and steps, initial encounter; Z87.891 Personal history of nicotine dependence
CPT/HCPCS: 36415; 70450; 70486; 71260; 72125; 73030; 73090; 73502; 74177; 80053; 81001; 83605; 84484; 85025; 93005; 99285; Q9967